=== PATIENT | female | born 1950 | race Caucasian/White ===

== ENCOUNTER 2022-06-29 13:19 | Inpatient (IN) ==
[2022-06-29] MEDS ORDERED: HEPARIN SODIUM IN D5W 25,000 UNITS/500 ML BAG IV PRN (17:08)
[2022-06-29] MEDS ORDERED: HEPARIN SODIUM INJ 5000 UNITS IVP ONE (17:09)
[2022-06-29] MEDS ORDERED: HEPARIN SODIUM INJ 5000 UNITS ONE (17:13)
[2022-06-29] MEDS ORDERED: HEPARIN SODIUM IN D5W 25,000 UNITS/500 ML BAG ONE (17:13)
[2022-06-29 17:39] LABS: INR 1.38 (0.8-1.3)
[2022-06-29 17:49] VITALS: BMI 38.9
[2022-06-29] MEDS ORDERED: PERCOCET TAB 5/325 MG PO PRN (18:19)
[2022-06-29] MEDS ORDERED: LR 1,000 ML IV 1,000 ML IV ONE (18:26)
[2022-06-29 18:40] LABS: BASOPHILS % (AUTO) 0.4 % (0.2-1.0); EOSINOPHILS % (AUTO) 0.3 % (0.9-2.9); HEMATOCRIT 37.8 % (36.0-47.0); HEMOGLOBIN 12.5 g/dL (12.0-16.0); LYMPHOCYTES # (AUTO) 0.6 X10^3/uL (1.3-2.9); LYMPHOCYTES % (AUTO) 7.9 % (21.0-51.0); MEAN CORPUSCULAR HEMOGLOBIN 26.4 pg (27.0-34.0); MEAN CORPUSCULAR VOLUME 79.9 fL (80.0-100.0); MEAN PLATELET VOLUME 7.7 fL (7.4-11.0); MONOCYTES # (AUTO) 0.1 x10^3/uL (0.3-0.8); MONOCYTES % (AUTO) 1.1 % (0.0-13.0); NEUTROPHILS % (AUTO) 90.3 % (42.0-75.0); RED BLOOD COUNT 4.73 X10^6/uL (3.5-5.4); RED CELL DISTRIBUTION WIDTH 15.2 % (11.6-16.5); WHITE BLOOD COUNT 7.7 X10^3/uL (3.6-10.0)
[2022-06-29] MEDS: LR 1,000 ML IV 1,000 ML IV SCH (18:44)
[2022-06-29 18:54] LABS: ALANINE AMINOTRANSFERASE 30 Units/L (12-78); ALBUMIN 3.8 g/dL (3.4-5.0); ALKALINE PHOSPHATASE 55 Units/L (46-116); ASPARTATE AMINO TRANSFERASE 48 Units/L (15-37); BLOOD UREA NITROGEN 11 mg/dL (7-18); CARBON DIOXIDE 28.3 mmol/L (21-32); CHLORIDE 104 mmol/L (98-107); COR NA(FOR HYPERGLY) 143 mmol/L (136-145); SODIUM 141 mmol/L (136-145); TOTAL PROTEIN 7.2 g/dL (6.4-8.2); eGFR NON BLACK RACES > 60 (>60)
[2022-06-29 19:03] LABS: HYPOCHROMASIA SLIGHT; PLATELET MORPHOLOGY COMMENT NORMAL (NORMAL)
[2022-06-29 19:04] LABS: MICROCYTOSIS SLIGHT
[2022-06-29 19:15] LABS: BILIRUBIN,URINE NEGATIVE (NEGATIVE); BLOOD/HEMOGLOBIN,URINE 1+ (NEGATIVE); GLUCOSE, URINE NEGATIVE (NEGATIVE); KETONES,URINE NEGATIVE (NEGATIVE); LEUKOCYTE ESTERASE ,URINE 3+ (NEGATIVE); NITRITES,URINE POSITIVE (NEGATIVE); PROTEIN,URINE NEGATIVE (NEGATIVE); UROBILINOGEN,URINE 1+ (NORMAL)
[2022-06-29 19:21] LABS: APPEARANCE,URINE CLOUDY (CLEAR); BACTERIA,URINE 3+ /HPF (NEGATIVE); COLOR,URINE YELLOW (YELLOW); SQUAMOUS EPITHELIAL CELL,UR RARE /HPF (NEGATIVE)
[2022-06-29] MEDS ORDERED: CRESTOR TAB 10 MG PO SCH (21:26)
[2022-06-29] MEDS ORDERED: CRESTOR TAB 10 MG PO ONE (21:32)
[2022-06-29] MEDS ORDERED: HYDROCHLOROTHIAZIDE 25 MG TAB ONE (21:32)
[2022-06-29] MEDS ORDERED: LOPRESSOR TAB 25 MG ONE (21:32)
[2022-06-29] MEDS: LOPRESSOR TAB 25 MG PO SCH (21:37)
[2022-06-29] MEDS: HYDROCHLOROTHIAZIDE 25 MG TAB PO SCH (21:38)
[2022-06-29] MEDS ORDERED: LOPRESSOR INJ 5 MG AMP IVP ONE (23:19)
[2022-06-29] MEDS ORDERED: LOPRESSOR INJ 5 MG AMP ONE (23:22)
[2022-06-30] MEDS: LR 1,000 ML IV 1,000 ML IV SCH (05:42)
[2022-06-30] MEDS ORDERED: SYNTHROID 75 mcg TAB PO SCH (06:30)
[2022-06-30] MEDS ORDERED: HEPARIN SODIUM IN D5W 75,000 UNITS/1,500 ML BAG ONE (06:57)
[2022-06-30] MEDS ORDERED: MARCAINE 0.5% ONE (07:01)
[2022-06-30] MEDS ORDERED: ACTIVASE CATHFLO ONE (07:02)
[2022-06-30 07:06] LABS: BASOPHILS % (AUTO) 0.3 % (0.2-1.0); HEMATOCRIT 36.2 % (36.0-47.0); HEMOGLOBIN 12.3 g/dL (12.0-16.0); LYMPHOCYTES # (AUTO) 0.6 X10^3/uL (1.3-2.9); LYMPHOCYTES % (AUTO) 9.8 % (21.0-51.0); MEAN CORPUSCULAR HEMOGLOBIN 26.7 pg (27.0-34.0); MEAN CORPUSCULAR VOLUME 78.6 fL (80.0-100.0); MEAN PLATELET VOLUME 7.7 fL (7.4-11.0); MONOCYTES # (AUTO) 0.2 x10^3/uL (0.3-0.8); MONOCYTES % (AUTO) 2.4 % (0.0-13.0); NEUTROPHILS # (AUTO) 5.6 x10^3/uL (2.2-4.8); NEUTROPHILS % (AUTO) 87.5 % (42.0-75.0); RED CELL DISTRIBUTION WIDTH 14.7 % (11.6-16.5); WHITE BLOOD COUNT 6.3 X10^3/uL (3.6-10.0)
[2022-06-30 07:13] LABS: ALANINE AMINOTRANSFERASE 28 Units/L (12-78); ALBUMIN 3.6 g/dL (3.4-5.0); ALKALINE PHOSPHATASE 52 Units/L (46-116); ASPARTATE AMINO TRANSFERASE 36 Units/L (15-37); BLOOD UREA NITROGEN 15 mg/dL (7-18); CALCIUM 8.9 mg/dL (8.5-10.1); CARBON DIOXIDE 26.5 mmol/L (21-32); CHLORIDE 104 mmol/L (98-107); COR NA(FOR HYPERGLY) 141 mmol/L (136-145); CREATININE 0.81 mg/dL (0.55-1.02); SODIUM 140 mmol/L (136-145); TOTAL PROTEIN 6.8 g/dL (6.4-8.2); eGFR NON BLACK RACES > 60 (>60)
[2022-06-30] MEDS ORDERED: DIPRIVAN VIAL 40 ML ONE (07:20)
[2022-06-30] MEDS ORDERED: HEPARIN SODIUM INJ 5000 UNITS ONE (07:20)
[2022-06-30] MEDS ORDERED: XYLOCAINE 2 % (PLAIN) ONE (07:20)
[2022-06-30] MEDS ORDERED: PRECEDEX INJ VIAL IVP ONE (07:20)
[2022-06-30] MEDS ORDERED: MAGNESIUM SULFATE 50% INJ VIAL ONE (07:20)
[2022-06-30] MEDS ORDERED: KETAMINE HCL ONE (07:26)
[2022-06-30] MEDS ORDERED: CLEOCIN 600 MG IV PREMIX 600 MG/50 ML BAG IV ONE (07:30)
[2022-06-30] MEDS ORDERED: LR 1,000 ML IV 1,000 ML IV ONE (07:34)
[2022-06-30] MEDS ORDERED: NS 1,000 ML IV 1,000 ML ONE (07:37)
[2022-06-30] MEDS ORDERED: HEPARIN SODIUM IN D5W 25,000 UNITS/500 ML BAG ONE ×2 (07:37→08:22)
[2022-06-30] MEDS ORDERED: ACTIVASE CATHFLO 12 MG in NS 250 ML IV 228 ML IV ONE (08:00)
--- NOTE | 2022-06-30 08:00 | DR.H&P ---
H&P History & Physical for Day of: H&P Date: 06/29/22 Chief Complaint Chief Complaint: Swollen left leg with documented complete femoral occlusion by deep venous thrombosis. Allergies Allergies Allergy/AdvReac Type Severity Reaction Status Date / Time MS Penicillins [Penicillins] Allergy Verified 05/17/15 20:25 History of Present Illness History of Present Illness: 71 year old female with significant swelling of both lower extremities of the last several weeks, worse on the left side. Admitted to the hospital in [place], [place] with doppler showing deep Venous Thrombosis and complete occlusion of the left femoral vein. Patient treated with Heparin. Transferred [place] to consider peripheral based thrombolysis and /or peripheral thrombectomy. Past Medical History Past Medical History: GERD, Hypertension and Hypothyroidism Past Surgical History Surgical History: Cholecystectomy and Other (cervical neck surgery in the past ) Family History Family Medical History: Diabetes Mellitus and Cancer Social History Does patient currently use any type of tobacco product: No Alcohol Use: None Drug Use: None Medications Home Medications: MS Penicillins [Penicillins] Allergy (Verified 05/17/15 20:25) Citalopram HCTZ Synthroid Metoprolol Prilosec Crestor Labs Result Diagrams: 06/30/22 06:45 06/30/22 06:45 Labs: Laboratory WBC 6.3 X10^3/uL (3.6-10.0) 06/30/22 06:45 RBC 4.60 X10^6/uL (3.5-5.4) 06/30/22 06:45 Hgb 12.3 g/dL (12.0-16.0) 06/30/22 06:45 Hct 36.2 % (36.0-47.0) 06/30/22 06:45 MCV 78.6 fL (80.0-100.0) L 06/30/22 06:45 MCH 26.7 pg (27.0-34.0) L 06/30/22 06:45 MCHC 34.0 g/dL (33.0-35.0) 06/30/22 06:45 RDW 14.7 % (11.6-16.5) 06/30/22 06:45 Plt Count 185 X10^3/uL (150.0-450.0) 06/30/22 06:45 Plt Count Comment Adequate (ADEQUATE) 06/29/22 18:30 MPV 7.7 fL (7.4-11.0) 06/30/22 06:45 Neut % (Auto) 87.5 % (42.0-75.0) H 06/30/22 06:45 Lymph % (Auto) 9.8 % (21.0-51.0) L 06/30/22 06:45 [place] % (Auto) 2.4 % (0.0-13.0) 06/30/22 06:45 Eos % (Auto) 0.0 % (0.9-2.9) L 06/30/22 06:45 Baso % (Auto) 0.3 % (0.2-1.0) 06/30/22 06:45 Neut # (Auto) 5.6 x10^3/uL (2.2-4.8) H 06/30/22 06:45 Lymph # (Auto) 0.6 X10^3/uL (1.3-2.9) L 06/30/22 06:45 [place] # (Auto) 0.2 x10^3/uL (0.3-0.8) L 06/30/22 06:45 Eos # (Auto) 0.0 x10^3/uL (0.0-0.2) 06/30/22 06:45 Baso # (Auto) 0.0 X10^3/uL (0.0-0.1) 06/30/22 06:45 Absolute Nucleated RBC 0.0 /100WBC 06/30/22 06:45 Total Counted 100 06/29/22 18:30 Neutrophils % (Manual) 85 % (39-76) H 06/29/22 18:30 Lymphocytes % (Manual) 11 % (13-43) L 06/29/22 18:30 Monocytes % (Manual) 4 % (4-9) 06/29/22 18:30 Plt Morphology Comment Normal (NORMAL) 06/29/22 18:30 RBC Morphology Abnormal (NORMAL) A 06/29/22 18:30 Hypochromasia Slight A 06/29/22 18:30 Microcytosis Slight A 06/29/22 18:30 PT 16.5 SECONDS (11.8-14.3) 06/29/22 17:20 INR Target Range - 06/29/22 17:20 INR 1.38 (0.8-1.3) H 06/29/22 17:20 APTT 44.6 SECONDS (22.9-36.5) H 06/30/22 06:45 PTT Comment - 06/30/22 06:45 Sodium 140 mmol/L (136-145) 06/30/22 06:45 Corrected Sodium 141 mmol/L (136-145) 06/30/22 06:45 Potassium 3.4 mmol/L (3.5-5.1) L 06/30/22 06:45 Chloride 104 mmol/L (98-107) 06/30/22 06:45 Carbon Dioxide 26.5 mmol/L (21-32) 06/30/22 06:45 BUN 15 mg/dL (7-18) 06/30/22 06:45 Creatinine 0.81 mg/dL (0.55-1.02) 06/30/22 06:45 Est GFR (MDRD) Af Amer > 60 (>60) 06/30/22 06:45 Est GFR (MDRD) Non-Af > 60 (>60) 06/30/22 06:45 Glucose 148 mg/dL (65-99) H 06/30/22 06:45 Calcium 8.9 mg/dL (8.5-10.1) 06/30/22 06:45 Corrected Calcium TNP 06/30/22 06:45 Total Bilirubin 0.60 mg/dL (0.2-1.0) 06/30/22 06:45 AST 36 Units/L (15-37) 06/30/22 06:45 ALT 28 Units/L (12-78) 06/30/22 06:45 Alkaline Phosphatase 52 Units/L (46-116) 06/30/22 06:45 Total Protein 6.8 g/dL (6.4-8.2) 06/30/22 06:45 Albumin 3.6 g/dL (3.4-5.0) 06/30/22 06:45 Globulin 3.2 g/dL (2.5-4.5) 06/30/22 06:45 Albumin/Globulin Ratio 1.1 Ratio (1.1-2.1) 06/30/22 06:45 Specimen Type Clean catch urine 06/29/22 18:20 Urine Color Yellow (YELLOW) 06/29/22 18:20 Urine Appearance Cloudy (CLEAR) 06/29/22 18:20 Urine pH 8.0 (5.0 - 8.0) 06/29/22 18:20 Ur Specific [place] 1.010 (1.000-1.030) 06/29/22 18:20 Urine Protein Negative (NEGATIVE) 06/29/22 18:20 Urine Glucose (UA) Negative (NEGATIVE) 06/29/22 18:20 Urine Ketones Negative (NEGATIVE) 06/29/22 18:20 Urine Blood 1+ (NEGATIVE) 06/29/22 18:20 Urine Nitrite Positive (NEGATIVE) 06/29/22 18:20 Urine Bilirubin Negative (NEGATIVE) 06/29/22 18:20 Urine Urobilinogen 1+ (NORMAL) 06/29/22 18:20 Ur Leukocyte Esterase 3+ (NEGATIVE) 06/29/22 18:20 Urine RBC 3-5 /HPF (0-3) A 06/29/22 18:20 Urine WBC 20-30 /HPF (0-5) A 06/29/22 18:20 Ur Squamous Epith Cells Rare /HPF (NEGATIVE) 06/29/22 18:20 Urine Bacteria 3+ /HPF (NEGATIVE) 06/29/22 18:20 Ur Culture Indicated? Yes/culture set up 06/29/22 18:20 Review of Systems Constitutional: See HPI Eyes: No Symptoms Reported ENT: No Symptoms Reported Respiratory: No Symptoms Reported Cardiovascular: No Symptoms Reported Gastrointestinal: No Symptoms Reported Genitourinary: No Symptoms Reported Musculoskeletal: No Symptoms Reported Skin: See HPI Neurological: No Symptoms Reported Physical Exam Vital Signs: Temperature 98.5 F Pulse Rate 74 Respiratory Rate 18 Blood Pressure 157/83 O2 Sat by Pulse Oximetry 91 Oriented: Normal, Time, Person and Place Eyes: Normal Ear: Normal Nose: Normal Throat: Normal Respiratory: Clear Throughout Cardiovascular: Normal : Normal Auscultation: Bowel Sounds: Normal Tenderness: Normal Skin: Normal (4 + pitting edema both lower extremities. ) Musculoskeletal: Normal Psychiatric: Normal Mood Description: Calm Affect: Normal Assessment/Plan (1) Left leg DVT: Status: Acute Plan: Treated with Heparin overnight. Will place thrombolytic catheter for thrombolysis and possible peripheral thrombectomy (2) Essential (primary) hypertension: Status: Acute Plan: home medications (3) Gastro-esophageal reflux disease without esophagitis: Status: Acute Plan: home medications (4) Compression of vein: Status: Acute Plan: A component of this may be severe iliac vein compression. Will do IVUS left side ans see. May need both sides addresses. Review H&P Reviewed: Yes Patient was examined?: Yes
--- NOTE | 2022-06-30 08:00 | EKG ---
Test Reason : pt in PACU Blood Pressure : */* mmHG Vent. Rate : 51 BPM Atrial Rate : 51 BPM P-R Int : 166 ms QRS Dur : 182 ms QT Int : 516 ms P-R-T Axes : 61 -62 -14 degrees QTc Int : 475 ms Sinus bradycardia Right bundle branch block Left anterior fascicular block Bifascicular block Abnormal ECG No previous ECGs available Referred By: Confirmed By:
[2022-06-30] MEDS ORDERED: ULTANE GAS IN ONE (08:03)
[2022-06-30] MEDS ORDERED: EPHEDRINE SULFATE INJ ONE (08:52)
[2022-06-30] MEDS ORDERED: NEO-SYNEPHRINE INJ ONE (08:57)
[2022-06-30] MEDS ORDERED: HYDROCHLOROTHIAZIDE 12.5 MG CAP PO SCH (09:00)
[2022-06-30] MEDS ORDERED: CELEXA PO SCH (09:00)
[2022-06-30] MEDS ORDERED: PriLOSEC PO SCH (09:00)
[2022-06-30] MEDS ORDERED: BARHEMSYS INJ IVP PRN (09:29)
[2022-06-30] MEDS ORDERED: PHENERGAN INJ 25 MG IM PRN (09:29)
[2022-06-30] MEDS ORDERED: DILAUDID INJ IVP PRN (09:29)
[2022-06-30] MEDS ORDERED: ZOFRAN INJ 4 MG VIAL IVP PRN (09:29)
[2022-06-30] MEDS ORDERED: BENADRYL INJ 50 MG VIAL IVP PRN (09:29)
--- NOTE | 2022-06-30 09:29 | OR.IMMED ---
IMMEDIATE POST-OP NOTE Immediate Post-Op Note Pre-Op Diagnosis: Deep Venous Thrombosis left femoral vein Post-Op Diagnosis: same Procedure: left lower extremity venogram, peripheral thrombectomy left femoral vein Description of Procedure: see operative summary Surgeon/Hogshead Filler: Griffin Findings: as above Estimated Blood Loss: < 25 cc Complications: none Progress Notes: return to ICU . Continue IV Heparin until receive first dose of po xarelto Condition: Stable Final Diagnosis: DVT left femoral vein
[2022-06-30] MEDS ORDERED: NORMODYNE INJ 20 MG VIAL IVP ONE (09:43)
[2022-06-30] MEDS ORDERED: APRESOLINE INJ 20 MG VIAL ONE (09:51)
[2022-06-30] MEDS ORDERED: LOPRESSOR INJ 5 MG AMP IVP ONE (10:00)
[2022-06-30] MEDS ORDERED: LABETALOL HCL IVP ONE (10:37)
[2022-06-30] MEDS ORDERED: NORMODYNE INJ 20 MG VIAL ONE (10:39)
[2022-06-30] MEDS: LOPRESSOR TAB 25 MG PO SCH (12:25)
[2022-06-30] MEDS: HYDROCHLOROTHIAZIDE 25 MG TAB PO SCH (12:25)
[2022-06-30] MEDS ORDERED: XARELTO PO ONE (12:28)
--- NOTE | 2022-06-30 16:19 | W.DIS.FURT ---
Summary of Discharge Discharge Summary of Date Date of Exam: 06/30/22 Admission Date Date of Admission: 06/29/22 Admission Diagnosis Hospital Course: 70 year old female admitted to the hospital in [place], [place] with deep Venous Thrombosis of the left femoral vein. She was transferred here for care where she underwent treatment with Heparin intravenously the day of admission and today underwent peripheral thrombectomy of the left leg deep Venous Thrombosis. She also is known to have a urinary tract infection. Still be discharged home on her usual medications plus Xarelto m15 mg po BID and Cipro 500 mg BID .The Cipro will be for 10 days Vital Signs: Vital Signs (72 hours) 06/29/22 16:49 06/29/22 20:00 06/29/22 20:30 Temperature 98.4 F Pulse Rate 92 H 79 Respiratory Rate 18 Blood Pressure 226/96 181/85 O2 Sat by Pulse Oximetry 93 L 92 L Oxygen Delivery Method Room Air Room Air Room Air Oxygen Flow Rate 06/29/22 21:00 06/29/22 19:00 06/29/22 22:00 Temperature Pulse Rate 80 74 Respiratory Rate 17 16 Blood Pressure 202/86 183/82 O2 Sat by Pulse Oximetry 95 91 L Oxygen Delivery Method Room Air Room Air Room Air Oxygen Flow Rate 06/29/22 23:30 06/29/22 23:00 06/29/22 23:00 Temperature 98.4 F Pulse Rate 78 75 Respiratory Rate 15 15 Blood Pressure 182/80 182/80 174/78 O2 Sat by Pulse Oximetry 88 L 90 L Oxygen Delivery Method Room Air Room Air Oxygen Flow Rate 06/29/22 23:40 06/29/22 23:50 06/30/22 00:00 Temperature 98.1 F Pulse Rate 79 Respiratory Rate 20 Blood Pressure 178/79 190/80 180/75 O2 Sat by Pulse Oximetry 96 Oxygen Delivery Method Room Air Oxygen Flow Rate 06/30/22 00:10 06/30/22 01:00 06/30/22 02:00 Temperature Pulse Rate 78 81 Respiratory Rate 16 17 Blood Pressure 165/77 172/77 186/80 O2 Sat by Pulse Oximetry 94 L 93 L Oxygen Delivery Method Room Air Room Air Oxygen Flow Rate 06/30/22 02:27 06/30/22 03:00 06/30/22 04:00 Temperature 98.5 F Pulse Rate 79 79 81 Respiratory Rate 18 19 23 Blood Pressure 166/74 165/77 113/74 O2 Sat by Pulse Oximetry 92 L 93 L 92 L Oxygen Delivery Method Room Air Room Air Nasal Cannula Oxygen Flow Rate 2 06/30/22 05:00 06/30/22 06:00 06/30/22 07:00 Temperature Pulse Rate 79 76 Respiratory Rate 18 16 Blood Pressure 156/73 165/79 O2 Sat by Pulse Oximetry 94 L 97 Oxygen Delivery Method Nasal Cannula Nasal Cannula Room Air Oxygen Flow Rate 2 2 06/29/22 23:31 06/29/22 23:42 06/29/22 23:42 Temperature Pulse Rate 75 77 Respiratory Rate 15 17 Blood Pressure 178/79 O2 Sat by Pulse Oximetry 90 L 94 L Oxygen Delivery Method Oxygen Flow Rate 06/29/22 23:56 06/29/22 23:58 06/29/22 23:58 Temperature Pulse Rate 80 78 Respiratory Rate 27 H 25 H Blood Pressure 190/80 O2 Sat by Pulse Oximetry 95 91 L Oxygen Delivery Method Oxygen Flow Rate 06/30/22 00:00 06/30/22 00:00 06/30/22 00:10 Temperature Pulse Rate 79 Respiratory Rate 20 Blood Pressure 180/75 165/77 O2 Sat by Pulse Oximetry 96 Oxygen Delivery Method Oxygen Flow Rate 06/30/22 00:10 06/30/22 00:15 06/30/22 00:30 Temperature Pulse Rate 75 76 76 Respiratory Rate 16 19 22 Blood Pressure O2 Sat by Pulse Oximetry 94 L 92 L 95 Oxygen Delivery Method Oxygen Flow Rate 06/30/22 00:45 06/30/22 01:00 06/30/22 01:00 Temperature Pulse Rate 77 79 Respiratory Rate 21 14 Blood Pressure 172/77 O2 Sat by Pulse Oximetry 94 L 92 L Oxygen Delivery Method Oxygen Flow Rate 06/30/22 01:15 06/30/22 01:30 06/30/22 01:45 Temperature Pulse Rate 78 77 80 Respiratory Rate 18 17 19 Blood Pressure O2 Sat by Pulse Oximetry 93 L 93 L 94 L Oxygen Delivery Method Oxygen Flow Rate 06/30/22 02:03 06/30/22 02:04 06/30/22 02:04 Temperature Pulse Rate 84 81 Respiratory Rate 29 H 17 Blood Pressure 186/80 O2 Sat by Pulse Oximetry 95 93 L Oxygen Delivery Method Oxygen Flow Rate 06/30/22 02:15 06/30/22 02:27 06/30/22 02:27 Temperature Pulse Rate 77 79 Respiratory Rate 18 18 Blood Pressure 166/74 O2 Sat by Pulse Oximetry 91 L 92 L Oxygen Delivery Method Oxygen Flow Rate 06/30/22 02:30 06/30/22 02:45 06/30/22 03:00 Temperature Pulse Rate 78 64 82 Respiratory Rate 18 17 18 Blood Pressure O2 Sat by Pulse Oximetry 94 L 93 L 95 Oxygen Delivery Method Oxygen Flow Rate 06/30/22 03:01 06/30/22 03:01 06/30/22 03:15 Temperature Pulse Rate 82 80 Respiratory Rate 16 21 Blood Pressure 165/77 O2 Sat by Pulse Oximetry 96 91 L Oxygen Delivery Method Oxygen Flow Rate 06/30/22 03:30 06/30/22 03:45 06/30/22 04:00 Temperature Pulse Rate 80 79 81 Respiratory Rate 16 16 19 Blood Pressure O2 Sat by Pulse Oximetry 89 L 89 L 89 L Oxygen Delivery Method Oxygen Flow Rate 06/30/22 04:01 06/30/22 04:01 06/30/22 04:15 Temperature Pulse Rate 81 79 Respiratory Rate 23 18 Blood Pressure 113/74 O2 Sat by Pulse Oximetry 92 L 89 L Oxygen Delivery Method Oxygen Flow Rate 06/30/22 04:30 06/30/22 04:45 06/30/22 05:00 Temperature Pulse Rate 80 79 Respiratory Rate 21 18 Blood Pressure 156/73 O2 Sat by Pulse Oximetry 89 L 89 L Oxygen Delivery Method Oxygen Flow Rate 06/30/22 05:00 06/30/22 05:32 06/30/22 05:45 Temperature Pulse Rate 79 80 76 Respiratory Rate 18 23 18 Blood Pressure O2 Sat by Pulse Oximetry 94 L 96 Oxygen Delivery Method Oxygen Flow Rate 06/30/22 06:00 06/30/22 06:00 06/30/22 06:15 Temperature Pulse Rate 78 76 Respiratory Rate 19 18 Blood Pressure 165/79 O2 Sat by Pulse Oximetry 94 L 95 Oxygen Delivery Method Oxygen Flow Rate 06/30/22 06:30 06/30/22 06:45 06/30/22 07:01 Temperature Pulse Rate 73 69 77 Respiratory Rate 15 20 Blood Pressure O2 Sat by Pulse Oximetry 93 L 98 97 Oxygen Delivery Method Oxygen Flow Rate 06/30/22 07:02 06/30/22 07:02 06/30/22 07:31 Temperature Pulse Rate 73 74 Respiratory Rate 21 18 Blood Pressure 173/80 157/83 O2 Sat by Pulse Oximetry 94 L 91 L Oxygen Delivery Method Room Air Oxygen Flow Rate 06/30/22 09:23 06/30/22 09:28 06/30/22 09:33 Temperature 98.2 F Pulse Rate 66 67 67 Respiratory Rate 16 16 16 Blood Pressure 200/105 194/101 199/104 O2 Sat by Pulse Oximetry 95 96 96 Oxygen Delivery Method Nasal Cannula Nasal Cannula Nasal Cannula Oxygen Flow Rate 06/30/22 09:38 06/30/22 09:43 06/30/22 09:48 Temperature Pulse Rate 67 67 68 Respiratory Rate 16 16 16 Blood Pressure 199/104 202/106 194/100 O2 Sat by Pulse Oximetry 97 97 96 Oxygen Delivery Method Nasal Cannula Nasal Cannula Nasal Cannula Oxygen Flow Rate 06/30/22 09:53 06/30/22 09:58 06/30/22 10:03 Temperature Pulse Rate 71 71 70 Respiratory Rate 16 18 18 Blood Pressure 194/100 195/101 197/99 O2 Sat by Pulse Oximetry 94 L 94 L 93 L Oxygen Delivery Method Nasal Cannula Nasal Cannula Nasal Cannula Oxygen Flow Rate 06/30/22 10:08 06/30/22 10:25 06/30/22 10:22 Temperature Pulse Rate 69 Respiratory Rate 18 Blood Pressure 198/100 219/105 O2 Sat by Pulse Oximetry 93 L 94 L Oxygen Delivery Method Nasal Cannula Oxygen Flow Rate 06/30/22 10:23 06/30/22 10:23 06/30/22 10:30 Temperature Pulse Rate 67 Respiratory Rate Blood Pressure 215/97 202/92 O2 Sat by Pulse Oximetry 95 Oxygen Delivery Method Oxygen Flow Rate 06/30/22 10:30 06/30/22 10:45 06/30/22 10:45 Temperature Pulse Rate 68 66 Respiratory Rate Blood Pressure 203/88 O2 Sat by Pulse Oximetry 95 94 L Oxygen Delivery Method Oxygen Flow Rate 06/30/22 11:00 06/30/22 11:01 06/30/22 11:01 Temperature Pulse Rate 59 L 59 L Respiratory Rate Blood Pressure 212/100 O2 Sat by Pulse Oximetry 97 96 Oxygen Delivery Method Oxygen Flow Rate 06/30/22 11:15 06/30/22 11:15 06/30/22 11:30 Temperature Pulse Rate 68 71 Respiratory Rate Blood Pressure 203/93 O2 Sat by Pulse Oximetry 95 98 Oxygen Delivery Method Oxygen Flow Rate 06/30/22 11:31 06/30/22 11:31 06/30/22 11:45 Temperature Pulse Rate 71 Respiratory Rate Blood Pressure 223/94 206/91 O2 Sat by Pulse Oximetry 95 Oxygen Delivery Method Oxygen Flow Rate 06/30/22 11:45 06/30/22 12:00 06/30/22 12:00 Temperature Pulse Rate 66 66 Respiratory Rate Blood Pressure 202/88 O2 Sat by Pulse Oximetry 98 95 Oxygen Delivery Method Oxygen Flow Rate 06/30/22 12:15 06/30/22 12:16 06/30/22 12:16 Temperature Pulse Rate 59 L 59 L Respiratory Rate Blood Pressure 203/91 O2 Sat by Pulse Oximetry 98 95 Oxygen Delivery Method Oxygen Flow Rate 06/30/22 12:30 06/30/22 12:30 06/30/22 12:45 Temperature Pulse Rate 76 Respiratory Rate Blood Pressure 204/93 197/94 O2 Sat by Pulse Oximetry 99 Oxygen Delivery Method Oxygen Flow Rate 06/30/22 12:45 06/30/22 13:00 06/30/22 13:00 Temperature Pulse Rate 62 67 Respiratory Rate Blood Pressure 207/94 O2 Sat by Pulse Oximetry 97 98 Oxygen Delivery Method Oxygen Flow Rate 06/30/22 13:15 06/30/22 13:16 06/30/22 13:16 Temperature Pulse Rate 73 73 Respiratory Rate Blood Pressure 186/88 O2 Sat by Pulse Oximetry 97 98 Oxygen Delivery Method Oxygen Flow Rate 06/30/22 13:30 06/30/22 13:31 06/30/22 13:31 Temperature Pulse Rate 73 73 Respiratory Rate Blood Pressure 149/68 O2 Sat by Pulse Oximetry 93 L 93 L Oxygen Delivery Method Oxygen Flow Rate 06/30/22 13:45 06/30/22 13:46 06/30/22 13:46 Temperature 97.2 F L Pulse Rate 72 73 Respiratory Rate Blood Pressure 181/81 O2 Sat by Pulse Oximetry 97 98 Oxygen Delivery Method Oxygen Flow Rate 06/30/22 14:00 06/30/22 14:01 06/30/22 14:01 Temperature 97.9 F Pulse Rate 74 76 Respiratory Rate Blood Pressure 162/77 O2 Sat by Pulse Oximetry 99 99 Oxygen Delivery Method Oxygen Flow Rate 06/30/22 14:15 06/30/22 14:15 06/30/22 14:30 Temperature Pulse Rate 72 Respiratory Rate Blood Pressure 153/71 149/64 O2 Sat by Pulse Oximetry 99 Oxygen Delivery Method Oxygen Flow Rate 06/30/22 14:30 06/30/22 14:45 06/30/22 14:45 Temperature Pulse Rate 72 73 Respiratory Rate Blood Pressure 145/67 O2 Sat by Pulse Oximetry 100 97 Oxygen Delivery Method Oxygen Flow Rate 06/30/22 15:00 06/30/22 15:01 06/30/22 15:01 Temperature Pulse Rate 72 72 Respiratory Rate Blood Pressure 150/69 O2 Sat by Pulse Oximetry 100 98 Oxygen Delivery Method Oxygen Flow Rate 06/30/22 15:15 06/30/22 15:15 Temperature Pulse Rate 71 Respiratory Rate Blood Pressure 159/74 O2 Sat by Pulse Oximetry 96 Oxygen Delivery Method Oxygen Flow Rate Labs: Laboratory Last Values WBC 6.3 X10^3/uL (3.6-10.0) 06/30/22 06:45 RBC 4.60 X10^6/uL (3.5-5.4) 06/30/22 06:45 Hgb 12.3 g/dL (12.0-16.0) 06/30/22 06:45 Hct 36.2 % (36.0-47.0) 06/30/22 06:45 MCV 78.6 fL (80.0-100.0) L 06/30/22 06:45 MCH 26.7 pg (27.0-34.0) L 06/30/22 06:45 MCHC 34.0 g/dL (33.0-35.0) 06/30/22 06:45 RDW 14.7 % (11.6-16.5) 06/30/22 06:45 Plt Count 185 X10^3/uL (150.0-450.0) 06/30/22 06:45 Plt Count Comment Adequate (ADEQUATE) 06/29/22 18:30 MPV 7.7 fL (7.4-11.0) 06/30/22 06:45 Neut % (Auto) 87.5 % (42.0-75.0) H 06/30/22 06:45 Lymph % (Auto) 9.8 % (21.0-51.0) L 06/30/22 06:45 [place] % (Auto) 2.4 % (0.0-13.0) 06/30/22 06:45 Eos % (Auto) 0.0 % (0.9-2.9) L 06/30/22 06:45 Baso % (Auto) 0.3 % (0.2-1.0) 06/30/22 06:45 Neut # (Auto) 5.6 x10^3/uL (2.2-4.8) H 06/30/22 06:45 Lymph # (Auto) 0.6 X10^3/uL (1.3-2.9) L 06/30/22 06:45 [place] # (Auto) 0.2 x10^3/uL (0.3-0.8) L 06/30/22 06:45 Eos # (Auto) 0.0 x10^3/uL (0.0-0.2) 06/30/22 06:45 Baso # (Auto) 0.0 X10^3/uL (0.0-0.1) 06/30/22 06:45 Absolute Nucleated RBC 0.0 /100WBC 06/30/22 06:45 Total Counted 100 06/29/22 18:30 Neutrophils % (Manual) 85 % (39-76) H 06/29/22 18:30 Lymphocytes % (Manual) 11 % (13-43) L 06/29/22 18:30 Monocytes % (Manual) 4 % (4-9) 06/29/22 18:30 Plt Morphology Comment Normal (NORMAL) 06/29/22 18:30 RBC Morphology Abnormal (NORMAL) A 06/29/22 18:30 Hypochromasia Slight A 06/29/22 18:30 Microcytosis Slight A 06/29/22 18:30 PT 16.5 SECONDS (11.8-14.3) 06/29/22 17:20 INR Target Range - 06/29/22 17:20 INR 1.38 (0.8-1.3) H 06/29/22 17:20 APTT 44.6 SECONDS (22.9-36.5) H 06/30/22 06:45 PTT Comment - 06/30/22 06:45 Sodium 140 mmol/L (136-145) 06/30/22 06:45 Corrected Sodium 141 mmol/L (136-145) 06/30/22 06:45 Potassium 3.4 mmol/L (3.5-5.1) L 06/30/22 06:45 Chloride 104 mmol/L (98-107) 06/30/22 06:45 Carbon Dioxide 26.5 mmol/L (21-32) 06/30/22 06:45 BUN 15 mg/dL (7-18) 06/30/22 06:45 Creatinine 0.81 mg/dL (0.55-1.02) 06/30/22 06:45 Est GFR (MDRD) Af Amer > 60 (>60) 06/30/22 06:45 Est GFR (MDRD) Non-Af > 60 (>60) 06/30/22 06:45 Glucose 148 mg/dL (65-99) H 06/30/22 06:45 Calcium 8.9 mg/dL (8.5-10.1) 06/30/22 06:45 Corrected Calcium TNP 06/30/22 06:45 Total Bilirubin 0.60 mg/dL (0.2-1.0) 06/30/22 06:45 AST 36 Units/L (15-37) 06/30/22 06:45 ALT 28 Units/L (12-78) 06/30/22 06:45 Alkaline Phosphatase 52 Units/L (46-116) 06/30/22 06:45 Total Protein 6.8 g/dL (6.4-8.2) 06/30/22 06:45 Albumin 3.6 g/dL (3.4-5.0) 06/30/22 06:45 Globulin 3.2 g/dL (2.5-4.5) 06/30/22 06:45 Albumin/Globulin Ratio 1.1 Ratio (1.1-2.1) 06/30/22 06:45 Specimen Type Clean catch urine 06/29/22 18:20 Urine Color Yellow (YELLOW) 06/29/22 18:20 Urine Appearance Cloudy (CLEAR) 06/29/22 18:20 Urine pH 8.0 (5.0 - 8.0) 06/29/22 18:20 Ur Specific [place] 1.010 (1.000-1.030) 06/29/22 18:20 Urine Protein Negative (NEGATIVE) 06/29/22 18:20 Urine Glucose (UA) Negative (NEGATIVE) 06/29/22 18:20 Urine Ketones Negative (NEGATIVE) 06/29/22 18:20 Urine Blood 1+ (NEGATIVE) 06/29/22 18:20 Urine Nitrite Positive (NEGATIVE) 06/29/22 18:20 Urine Bilirubin Negative (NEGATIVE) 06/29/22 18:20 Urine Urobilinogen 1+ (NORMAL) 06/29/22 18:20 Ur Leukocyte Esterase 3+ (NEGATIVE) 06/29/22 18:20 Urine RBC 3-5 /HPF (0-3) A 06/29/22 18:20 Urine WBC 20-30 /HPF (0-5) A 06/29/22 18:20 Ur Squamous Epith Cells Rare /HPF (NEGATIVE) 06/29/22 18:20 Urine Bacteria 3+ /HPF (NEGATIVE) 06/29/22 18:20 Ur Culture Indicated? Yes/culture set up 06/29/22 18:20 Reason For Visit: DVT Discharge Diagnosis All Active Problems (Updated 06/30/22 @ 07:57 by Bob Moya) Left leg DVT (Acute) Compression of vein (Acute) Gastro-esophageal reflux disease without esophagitis (Acute) Essential (primary) hypertension (Acute) Hydronephrosis (Acute) Abdominal pain (Acute) UTI (urinary tract infection) (Acute) Plan of Treatment: Continue with present treatment and follow up plan. Pt is to keep follow up appointment as instructed and take medications as ordered. Discharge Medications Discharge Medications: Penicillins Allergy (Verified 06/30/22 09:10) New Prescriptions ciprofloxacin HCl 500 mg tablet (Cipro) 500 mg PO BID #20 tabs 06/30/22 [Rx] rivaroxaban 15 mg tablet (Xarelto) 15 mg PO QDAY #45 tabs 06/30/22 [Rx] Discharge Disposition Assessment: Left leg DVT, UTI Discharge Plan Discharge Plan Hospital Course: 70 year old female admitted to the hospital in [place], [place] with deep Venous Thrombosis of the left femoral vein. She was transferred here for care where she underwent treatment with Heparin intravenously the day of admission and today underwent peripheral thrombectomy of the left leg deep Venous Thrombosis. She also is known to have a urinary tract infection. Still be discharged home on her usual medications plus Xarelto m15 mg po BID and Cipro 500 mg BID .The Cipro will be for 10 days Patient Disposition: 06 HOME HEALTH SERVICE Condition: Stable Health Concerns: Post Hospitalization: new medications and changes needed to prevent readmission or further decline. Pt educated and given instructions on all concerns. Care Plan Goals: Problem: Pain/Alteration in Comfort Goal: Improve/ Resolve Pain; Achieve Pain Tolerance Instructions: Take pain medications as prescribed. Contact your primary care p maisha if your pain is unrelieved or worsens. Follow up with primary care provider as directed. Plan of Treatment: Continue with present treatment and follow up plan. Pt is to keep follow up appointment as instructed and take medications as ordered. Assessment: Left leg DVT, UTI Prescription drug monitoring program results: PDMP was not reviewed Prescriptions: New Xarelto 15 mg tablet 15 mg PO QDAY Qty: 45 0RF Rx Instructions: must administer with evening meal ciprofloxacin HCl [Cipro] 500 mg tablet 500 mg PO BID Qty: 20 0RF Continued citalopram 40 MG tablet 1 tab PO DAILY Label Comments: Hydrochlorothiazide 25 MG Tab 1 tab PO DAILY Label Comments: Levothyroxine Sodium 75 MCG Tab 1 tab PO DAILY Label Comments: Metoprolol Tartrate [Lopressor] 25 MG Tab 1 tab PO BID Label Comments: Omeprazole 40 MG Cap 1 cap PO DAILY Label Comments: Rosuvastatin Calcium [Crestor] 20 MG Tab 1 tab PO HS Label Comments: Follow ups/Referrals Follow ups/Referrals: Bob Moya [STAFF PHYSICIAN] - 07/06/22 10:00 am Instructions Instructions: Catheter-Directed Thrombolysis, Care After, Deep Vein Thrombosis, Venous Thromboembolism Prevention
[2022-06-30 17:01] VITALS: BP 157/70
[2022-06-30] MEDS ORDERED: XARELTO PO SCH (21:00)
--- NOTE | 2022-07-02 20:41 | DR.OPNOTE ---
OP NOTE Pre-Op Diagnosis: DVT left femoral vein with complete occlusion. Post-Op Diagnosis: DVT left femoral vein but not completely occluded. Procedure Date Date Of Procedure: 06/30/22 Procedure: PROCEDURE : Left leg venogram, venogram of inferior vena cava, Angiojet left femoral vein thrombectomy NARRATIVE: The patient was taken to the operative suite and placed in the supine position and the entire left leg prepped including the left groin. Patient had been on heparin drip which was stopped in the holding area. Ultrasound used to identify the left posterior tibial vein at the medial ankle and the skin overlying it infiltrated with 0.5% Marcaine. Ultrasound used to guide puncture of the left posterior tibial vein and 0.012 inch guide wire placed. Incision made over the guide wire at the skin edge and micro sheath placed over the guide wire into the left posterior tibial vein. Venogram of the left leg carried out showing DVT and incomplete occlusion of the left femoral vein. 0.018 inch guide wire placed and intravascular ultrasound carried out confirming incomplete occlusion and DVT of the left femoral vein. Guidewire exchanged for a 0.035 inch guide wire and over the wire we placed the Angiojet device and performed peripheral thrombectomy of the left femoral vein. IVUS confirmed improvement of the left femoral vein. Patient had been given a bolus of 3000 units of heparin at the beginning of the case. Sheath removed from the left posterior tibial vein and a tibial band placed over the puncture site and will be sequentially deflated by the nurses in the ICU. Type of Anesthesia: Local (0.5% Marcaine ) Anesthesia Comment: plus MAC Findings: Deep venous thrombosis of the left femoral vein. Type of Fluids Used:: Lactated Ringers Total Amount of Fluid Infused:: 500 cc Urine output: 500 cc EBL: < 25 cc Complications:: none Needle/Sponge Count:: correct Disposition/Condition: Pt. tolerated procedure without difficulty. Taken to [facility] in stable condition.
== END 2022-06-30 18:10 | disposition home health service (06) | DRG 271 ==
LOC: ICU 16:34
PROVIDERS: ADMIT Surgery; ATTEND Surgery
DX: R79.1 Abnormal coagulation profile; I82.412 Acute embolism and thrombosis of left femoral vein; R94.31 Abnormal electrocardiogram [ECG] [EKG]; E03.8 Other specified hypothyroidism; N39.0 Urinary tract infection, site not specified; I87.1 Compression of vein; B96.29 Other Escherichia coli [E. coli] as the cause of diseases classified elsewhere; I10 Essential (primary) hypertension

== ENCOUNTER 2022-12-09 21:23 | Observation (INO) ==
[2022-12-09] MEDS ORDERED: NS 1,000 ML IV 1,000 ML ONE (21:53)
[2022-12-09] MEDS ORDERED: NS 1,000 ML IV 1,000 ML IV ONE (22:07)
[2022-12-09] MEDS ORDERED: BYFAVO INJ IVP ONE (22:11)
[2022-12-09] MEDS ORDERED: NORCO 5/325 MG TAB PO PRN ×2 (22:45→23:55)
--- NOTE | 2022-12-09 22:45 | DR.CONSULT ---
CONSULT Consultation for Day of: Date: 12/09/22 Chief Complaint Chief Complaint: right ankle fracture dislocation Allergies Allergies Allergy/AdvReac Type Severity Reaction Status Date / Time Penicillins Allergy Verified 12/09/22 21:54 History of Present Illness History of Present Illness: patient fell at home. did not hit head. no other trauma. was taken to my office x ray taken shown to have fracture dislocation. brought to ER by daughters and will need admission after reduction due to inability to remain NWB. Past Medical History Past Medical History: GERD, Hypertension and Hypothyroidism Past Surgical History Surgical History: Cholecystectomy and Other Family History Family Medical History: Diabetes Mellitus and Cancer Social History Alcohol Use: None Medications Home Medications: Penicillins Allergy (Verified 12/09/22 21:54) Review of Systems Musculoskeletal: Leg Pain Physical Exam Vital Signs: Temperature 98.4 F Pulse Rate 71 Respiratory Rate 20 Blood Pressure 178/79 O2 Sat by Pulse Oximetry 96 Oriented: Normal, Time and Person Musculoskeletal: Ankle (righ tankle with edema. starting to have fracture blister along medial malleoli region. region is 3cm x 1cm and without hamorrhage at this time. no open segments. palapble pulses and CFT instant to toes. ) and Swelling (pitting edema of both legs and ankles , lipedema. ) Plan (1) Dislocation of ankle, right, closed: Status: Acute (2) Bimalleolar fracture of right ankle: Status: Acute Narrative Support Text: Patient was brought o ER in splint. concious sedation given by anesthesia. timeout performed bedside. consent signed and patient prior to sedation. splint removed that was place outside by daughter. ankle then reduced by myself, held and then AO splint applied posterior and slabs. reduction then confirmed with 3 v ankle plain films. patient will need to be admitted for pain control and will need rehab placement. family unable to care for her as she has stairs in house and will be NWB. she will need rehab facility and will need surgical intervention this week. She will need cardiac eval while in hospital due to changed noted on EKG during monitoring. will order 12 lead and monitor.
[2022-12-09 23:03] LABS: BASOPHILS % (AUTO) 0.3 % (0.2-1.0); EOSINOPHILS % (AUTO) 0.4 % (0.9-2.9); HEMATOCRIT 37.3 % (36.0-47.0); HEMOGLOBIN 12.6 g/dL (12.0-16.0); LYMPHOCYTES # (AUTO) 0.8 X10^3/uL (1.3-2.9); LYMPHOCYTES % (AUTO) 6.8 % (21.0-51.0); MEAN CORPUSCULAR HEMOGLOBIN 25.4 pg (27.0-34.0); MEAN CORPUSCULAR HGB CONC 33.6 g/dL (33.0-35.0); MEAN CORPUSCULAR VOLUME 75.4 fL (80.0-100.0); MEAN PLATELET VOLUME 8.2 fL (7.4-11.0); MONOCYTES # (AUTO) 0.5 x10^3/uL (0.3-0.8); MONOCYTES % (AUTO) 4.8 % (0.0-13.0); NEUTROPHILS # (AUTO) 9.9 x10^3/uL (2.2-4.8); NEUTROPHILS % (AUTO) 87.7 % (42.0-75.0); PLATELET COUNT 180 X10^3/uL (150.0-450.0); RED BLOOD COUNT 4.95 X10^6/uL (3.5-5.4); RED CELL DISTRIBUTION WIDTH 15.8 % (11.6-16.5); WHITE BLOOD COUNT 11.3 X10^3/uL (3.6-10.0)
[2022-12-09 23:11] LABS: ALANINE AMINOTRANSFERASE 29 Units/L (12-78); ALBUMIN 3.9 g/dL (3.4-5.0); ALKALINE PHOSPHATASE 44 Units/L (46-116); ASPARTATE AMINO TRANSFERASE 30 Units/L (15-37); BLOOD UREA NITROGEN 20 mg/dL (7-18); CARBON DIOXIDE 30.5 mmol/L (21-32); CHLORIDE 102 mmol/L (98-107); CREATININE 0.89 mg/dL (0.55-1.02); GLUCOSE 109 mg/dL (65-99); POTASSIUM 3.1 mmol/L (3.5-5.1); SODIUM 142 mmol/L (136-145); eGFR NON BLACK RACES > 60 (>60)
--- NOTE | 2022-12-09 23:25 | DR.EXTPAIN ---
HPI Time seen Time Seen by Provider: 12/09/22 21:55 Complaint/Symptoms Chief Complaint Doctor Comments: DR LOUISE CALERNIE ABOUT A PATIENT COMING TO ER TO BE EVALUTED AND HE WAS COMING TO REDUCE A R ANKLE FRACTURE AND NEED THE PATIENT TO HAVE CONSCIOUS SEDATION. WHEN HE ARRIVE AT ER THENURSE ANESTETIST WAS CALLED TO DO CONSCIOUS SEDATION. Chief Complaint:: pt c/o right ankle pain after falling today, reports she had an xray at Dr. Louise's office and was told it was dislocated and was instructed by him to come to ER, pt with orthoglass to RLL, pt with NAD COVID-19 Coronavirus risk:travel/contact w/high risk person: No Has patient experienced Coronavirus symptoms: No Source History Provided: Patient and Family Member Mode of arrival Mode of Arrival: Wheelchair Timing Onset of Chief Complaint: 12/09/22 PMH PMH Past Medical History: Yes Past Medical History: GERD, Hypertension and Hypothyroidism Past Surgical History: Yes Surgical History: Cholecystectomy and Other Family History History of Family Medical Conditions: Yes Family Medical History: Diabetes Mellitus and Cancer Social History Alcohol Use: None Do you use any recreational Drugs:: No Lives With: Family Lives Where: Home Travel Risk Coronavirus risk:travel/contact w/high risk person: No Has patient experienced Coronavirus symptoms: No Infectious screening Have you traveled outside the country in the last 6 months?: No Isolation: Standard ROS Review of Systems Constitutional: Other (R ANKLE PAIN WITH FRACTURES) Eyes: No Symptoms Reported ENTM: No Symptoms Reported Respiratoy: No Symptoms Reported Cardiovascular: No Symptoms Reported Gastrointestinal/Abdominal: No Symptoms Reported Genitourinary: No Symptoms Reported Neurological: No Symptoms Reported Musculoskeletal: Right, Ankle and Foot (PAIN) Integumentary: No Symptoms Reported Hematologic/Lymphatic: No Symptoms Reported Endocrine: No Symptoms Reported Psychiatric: No Symptoms Reported PE Vital Signs Vitals: Temperature 98.4 F Pulse Rate 71 Respiratory Rate 18 Blood Pressure 178/79 O2 Sat by Pulse Oximetry 96 General Limitations: Physical Limitation (NOT AMBULATORY SECONDARY TO R ANKLE FRACTURE) General Appearance: In Distress (MODERATE DISTRESS) Head Head Exam: Normal Inspection, Atraumatic and Normocephalic Eyes Eye exam: Normal Appearance, PERRL and EOMI ENT ENT Exam: Normal Exam, Normal Oropharynx and Normal External Ear Exam Neck Neck Exam: Normal Inspection, Full ROM and Trachea Midline Chest Chest Inspection: Normal Inspection and Symmetric Chest Wall Rise Respiratory Respiratory Exam: Normal Lung Sounds Bilat Respiratory Exam: Bilateral: Clear to Auscultation Cardiovascular Cardiovascular Exam: Regular Rate and Normal Rhythm Abdominal Exam Abdominal Exam: Normal Inspection, Normal Bowel Sounds and Soft Extremities Extremities Exam: Normal Inspection and Full ROM Upper Extremities Shoulder Exam: Normal Inspection Arm Exam: Normal Inspection Elbow Exam: Normal Inspection Forearm Exam: Normal Inspection Hand Exam: Normal Inspection Neuromotor Exam: Normal Exam Neurosensory Exam: Normal Exam Lower Extremities Hip/Pelvis Exam: Normal Inspection Upper Leg Exam: Normal Inspection and Full ROM Knee Exam: Normal Inspection and Full ROM Lower Leg Exam: Tenderness and Swelling (R FOOT AND ANKLE) Ankle Exam: Tenderness (R ANKLE) Foot/Toe Exam: Normal Inspection Gait Exam: Not Tested/Not Observed Back Back Exam: Normal Inspection and Full ROM Neurological Neurological Exam: Alert, Oriented X3 and CN II-XII Intact Psychiatric Psychiatric Exam: Normal Affect and Normal Mood Skin Skin Exam: Warm, Dry and Intact MDM Differential Diagnosis Differential Diagnosis: Fracture (R MEDIAL AND LATERAL MALLEOLARS) and Sprain (R ANKLE) COURSE Treatment Treatment: DR LOUISE CAME TO ER AND REDUCED AND SET THE BONES IN R ANKLE. HE STATE THAT THE PATIENT NEEDED TO BE ADMITTED FOR PAIN CONTROL AND INABILITY TO AMBULATE. ANTICIPATING TRANSFER TO REHAB FACILITY. SPOKE TO DR AMIN AT 2343 AND HE TOLD THENURSE TO ADMIT THE PATIENT TO HIS SERVICES. [facility] Labs Reviewed Laboratory Results Reviewed?: Yes Result Diagrams: 12/09/22 22:50 12/09/22 22:50 Laboratory: WBC 11.3 X10^3/uL (3.6-10.0) H 12/09/22 22:50 RBC 4.95 X10^6/uL (3.5-5.4) 12/09/22 22:50 Hgb 12.6 g/dL (12.0-16.0) 12/09/22 22:50 Hct 37.3 % (36.0-47.0) 12/09/22 22:50 MCV 75.4 fL (80.0-100.0) L 12/09/22 22:50 MCH 25.4 pg (27.0-34.0) L 12/09/22 22:50 MCHC 33.6 g/dL (33.0-35.0) 12/09/22 22:50 RDW 15.8 % (11.6-16.5) 12/09/22 22:50 Plt Count 180 X10^3/uL (150.0-450.0) 12/09/22 22:50 MPV 8.2 fL (7.4-11.0) 12/09/22 22:50 Neut % (Auto) 87.7 % (42.0-75.0) H 12/09/22 22:50 Lymph % (Auto) 6.8 % (21.0-51.0) L 12/09/22 22:50 [place] % (Auto) 4.8 % (0.0-13.0) 12/09/22 22:50 Eos % (Auto) 0.4 % (0.9-2.9) L 12/09/22 22:50 Baso % (Auto) 0.3 % (0.2-1.0) 12/09/22 22:50 Neut # (Auto) 9.9 x10^3/uL (2.2-4.8) H 12/09/22 22:50 Lymph # (Auto) 0.8 X10^3/uL (1.3-2.9) L 12/09/22 22:50 [place] # (Auto) 0.5 x10^3/uL (0.3-0.8) 12/09/22 22:50 Eos # (Auto) 0.0 x10^3/uL (0.0-0.2) 12/09/22 22:50 Baso # (Auto) 0.0 X10^3/uL (0.0-0.1) 12/09/22 22:50 Absolute Nucleated RBC 0.1 /100WBC 12/09/22 22:50 Sodium 142 mmol/L (136-145) 12/09/22 22:50 Corrected Sodium TNP 12/09/22 22:50 Potassium 3.1 mmol/L (3.5-5.1) L 12/09/22 22:50 Chloride 102 mmol/L (98-107) 12/09/22 22:50 Carbon Dioxide 30.5 mmol/L (21-32) 12/09/22 22:50 BUN 20 mg/dL (7-18) H 12/09/22 22:50 Creatinine 0.89 mg/dL (0.55-1.02) 12/09/22 22:50 Est GFR (MDRD) Af Amer > 60 (>60) 12/09/22 22:50 Est GFR (MDRD) Non-Af > 60 (>60) 12/09/22 22:50 Glucose 109 mg/dL (65-99) H 12/09/22 22:50 Calcium 9.0 mg/dL (8.5-10.1) 12/09/22 22:50 Corrected Calcium TNP 12/09/22 22:50 Total Bilirubin 0.50 mg/dL (0.2-1.0) 12/09/22 22:50 AST 30 Units/L (15-37) 12/09/22 22:50 ALT 29 Units/L (12-78) 12/09/22 22:50 Alkaline Phosphatase 44 Units/L (46-116) L 12/09/22 22:50 Total Protein 7.0 g/dL (6.4-8.2) 12/09/22 22:50 Albumin 3.9 g/dL (3.4-5.0) 12/09/22 22:50 Globulin 3.1 g/dL (2.5-4.5) 12/09/22 22:50 Albumin/Globulin Ratio 1.3 Ratio (1.1-2.1) 12/09/22 22:50 Opioid Opioid Risk Tool Age (Gamaliel box if 16-45): No History of Preadolescent Sexual Abuse: No Total: 0 Total Score Risk Category: Low Risk Copyright: Naun ARAGON predicting aberrant behaviors Discharge Plan Diagnosis Discharge Problem: Closed fracture of right fibula and tibia, Pain management Discharge Plan Patient Disposition: ADMITTED INPATIENT Condition: Stable Orders to Discharge Patient Discharge Orders: Transfer (Routine); Ordered 12/10/22 Ordered By: Ezekiel Leong
[2022-12-09] MEDS ORDERED: NORCO 5/325 MG TAB ONE (23:40)
[2022-12-09] MEDS ORDERED: ZOFRAN INJ 4 MG VIAL IVP PRN (23:55)
[2022-12-09] MEDS ORDERED: ZOFRAN TAB 4 MG SL PRN (23:55)
[2022-12-10] MEDS ORDERED: NS + KCL 20 MEQ/L 1,000 ML IV ONE (00:08)
[2022-12-10] MEDS: NS + KCL 20 MEQ/L 1,000 ML IV SCH ×3 (00:24→16:39)
[2022-12-10] MEDS ORDERED: K-RIDER 10 MEQ/NS 100 ML 10 MEQ/100 ML BAG IV PRN (01:05)
[2022-12-10] MEDS ORDERED: MICRO K EXTEN CAP 10 MEQ PO PRN (01:05)
[2022-12-10] MEDS ORDERED: POTASSIUM CHL 60 MEQ/NS 0.45% 500 ML IV PRN (01:05)
[2022-12-10] MEDS ORDERED: POTASSIUM CHLORIDE LIQ 20 MEQ UDC PO PRN (01:05)
[2022-12-10] MEDS ORDERED: KLOR-CON PO PRN (01:05)
[2022-12-10] MEDS ORDERED: POTASSIUM CHL 40 MEQ/NS 0.45% 500 ML IV PRN (01:05)
[2022-12-10] MEDS: MAGNESIUM SULFATE 1 GRAM/100 mL PREMIX 1 G/100 ML BAG IV PRN ×2 (01:25→02:25)
[2022-12-10] MEDS: K-DUR TAB 20 MEQ PO PRN (01:25)
[2022-12-10] MEDS: ULTRAM PO PRN ×4 (04:57→20:45)
[2022-12-10 06:23] LABS: BASOPHILS % (AUTO) 0.5 % (0.2-1.0); EOSINOPHILS # (AUTO) 0.1 x10^3/uL (0.0-0.2); EOSINOPHILS % (AUTO) 0.9 % (0.9-2.9); HEMATOCRIT 31.2 % (36.0-47.0); HEMOGLOBIN 10.7 g/dL (12.0-16.0); LYMPHOCYTES # (AUTO) 0.8 X10^3/uL (1.3-2.9); LYMPHOCYTES % (AUTO) 13.6 % (21.0-51.0); MEAN CORPUSCULAR HGB CONC 34.3 g/dL (33.0-35.0); MEAN CORPUSCULAR VOLUME 75.8 fL (80.0-100.0); MEAN PLATELET VOLUME 8.3 fL (7.4-11.0); MONOCYTES # (AUTO) 0.5 x10^3/uL (0.3-0.8); NEUTROPHILS # (AUTO) 4.6 x10^3/uL (2.2-4.8); PLATELET COUNT 147 X10^3/uL (150.0-450.0); RED BLOOD COUNT 4.11 X10^6/uL (3.5-5.4); RED CELL DISTRIBUTION WIDTH 15.9 % (11.6-16.5)
[2022-12-10 06:33] LABS: ALANINE AMINOTRANSFERASE 25 Units/L (12-78); ALBUMIN 3.2 g/dL (3.4-5.0); ALKALINE PHOSPHATASE 34 Units/L (46-116); ASPARTATE AMINO TRANSFERASE 26 Units/L (15-37); BLOOD UREA NITROGEN 18 mg/dL (7-18); CALCIUM 8.4 mg/dL (8.5-10.1); CARBON DIOXIDE 29.8 mmol/L (21-32); CHLORIDE 104 mmol/L (98-107); CREATININE 0.67 mg/dL (0.55-1.02); GLUCOSE 97 mg/dL (65-99); POTASSIUM 3.3 mmol/L (3.5-5.1); SODIUM 140 mmol/L (136-145); TOTAL PROTEIN 5.9 g/dL (6.4-8.2); eGFR NON BLACK RACES > 60 (>60)
--- NOTE | 2022-12-10 07:52 | RAD ---
HISTORYPost reductionSTUDYRight ankle three viewsCOMPARISONNoneFINDINGSHeavy cast material is present, limiting visualization of bone detail.There is an acute undisplaced fracture of the medial malleolus with an additional oblique fracture of the distal fibula. The joint space is symmetric.IMPRESSIONBimalleolar ankle fracture without dislocation identified. Detail is limited and there is no prior exam for comparison to confirm stability.Electronically signed by: MARVA QUINTANA (December 10, 2022 07:51:54)
--- NOTE | 2022-12-10 09:31 | NOTE.SOAP ---
Soap Note Note for Day of Date of Exam: 12/09/22 Subjective Data Subjective Data: This is a72 year old female who presented to the emergency room following a low energy rotational injury to her lower extremity. Patient was sewn in the emergency room by for closed reduction and splinting. Injury occurred yesterday and she was seen in the office for x-rays. She continues to have pain in the ankle that has not been well controlled. She has weight bearing and palpation as aggravating factors . No alleviating factor's . No treatment prior to emergency room visit. I did not see the patient, this is from Dr. Betancourt request that a note be placed. Objective Data Objective Data: Right ankle is swollen and painful to touch. No gross deformity noted post reduction. Compartments are soft ad compressible. Neurovascular intact, pulses palpable, cft brisk to digits. No evidence of DVT. No breaks in skin. Able to wiggle digits. Assessment Assessment: Right ankle fracture Plan Plan: Plan for orif / TTC nail of right ankle this week, pending swelling. Posterior/sugar tong splint applied. Leave intact. Nwb to r foot Low ADLs, will have goal to try to return her to this low level of activity. XRs reviewed. [place] / possible trimal fracture equivalent. Will need rehab / snf placement, as she has stairs at home and is unable to navigate these at this time. Pt / ot / case management consults needed Will follow
[2022-12-10 10:25] VITALS: BMI 31.9
[2022-12-10] MEDS ORDERED: NEURONTIN CAP 300 MG PO ONE (12:01)
--- NOTE | 2022-12-10 12:09 | EKG ---
Test Reason : PRE OP Blood Pressure : */* mmHG Vent. Rate : 75 BPM Atrial Rate : 75 BPM P-R Int : 150 ms QRS Dur : 172 ms QT Int : 460 ms P-R-T Axes : 56 -63 16 degrees QTc Int : 513 ms Normal sinus rhythm Left axis deviation Right bundle branch block Septal infarct , age undetermined Abnormal ECG When compared with ECG of 30-JUN-2022 07:55, Septal infarct is now present Confirmed by Ryan Bailey ([id number]) on 12/11/2022 7:19:06 PM Referred By: Confirmed By: Ryan Bailey
--- NOTE | 2022-12-10 12:43 | RAD ---
HISTORYPreopSTUDYAP chestCOMPARISONNoneFINDINGSTransverse heart diameter normal with clear lungs and pleural spaces.IMPRESSIONNo active or significant chronic chest abnormality.Electronically signed by: MARVA QUINTANA (December 10, 2022 12:42:19)
[2022-12-10 14:30] LABS: APPEARANCE,URINE HAZY (CLEAR); COLOR,URINE STRAW (YELLOW)
[2022-12-10 14:31] LABS: BILIRUBIN,URINE NEGATIVE (NEGATIVE); BLOOD/HEMOGLOBIN,URINE NEGATIVE (NEGATIVE); GLUCOSE, URINE NEGATIVE (NEGATIVE); KETONES,URINE NEGATIVE (NEGATIVE); LEUKOCYTE ESTERASE ,URINE 1+ (NEGATIVE); NITRITES,URINE NEGATIVE (NEGATIVE); PROTEIN,URINE 1+ (NEGATIVE); RBC,URINE NONE SEEN /HPF (0-3); SQUAMOUS EPITHELIAL CELL,UR MODERATE /HPF (NEGATIVE); UROBILINOGEN,URINE NORMAL (NORMAL)
[2022-12-10 14:32] LABS: BACTERIA,URINE 1+ /HPF (NEGATIVE)
--- NOTE | 2022-12-10 14:44 | DR.H&P ---
H&P History & Physical for Day of: H&P Date: 12/10/22 Chief Complaint Chief Complaint: Right ankle pain after fall Allergies Allergies Allergy/AdvReac Type Severity Reaction Status Date / Time Penicillins Allergy Verified 12/09/22 21:54 History of Present Illness History of Present Illness: This is a pleasant 72-year-old white female who was admitted yesterday evening to [facility] after seeing hand shoe cutter, Dr. Francisco Louise's office. He sent the patient to [facility] emergency department for conscious sedation and so that he could do closed reduction and splinting. While in the emergency department she had an x-ray that showed a bimalleolar fracture and a distal fibular fracture. Daughter lab is now planning on an operation once the patient has cardiac clearance by Dr. Bailey when he comes next week. In the meantime we will monitor pain control. She has a history of hypertension, GERD and hypothyroidism. She also has a history of DVT in the left lower extremity. She takes Xarelto for that. She denies any history of cardiac problems and no history of atrial fibrillation. While speaking with the patient this morning she also reports that at nighttime she describes go to bed that she is unable to keep her legs still she has to move around constantly to keep him from hurting. She also reports that she has chronic pain and stinging and burning of her feet and legs. I talked to her about ropinirole for restless leg syndrome and she wishes to try it and gabapentin for the nerve pain in her feet and legs bilaterally. Past Medical History Past Medical History: GERD, Hypertension and Hypothyroidism Additional Medical History: DVT Past Surgical History Surgical History: Cholecystectomy and Other Family History Family Medical History: Diabetes Mellitus and Cancer Social History Alcohol Use: None Drug Use: None Medications Home Medications: Penicillins Allergy (Verified 12/09/22 21:54) CONTINUE taking the following medications amlodipine 2.5 mg tablet 2.5 mg PO HS 12/10/22 [History] hydrochlorothiazide 50 mg tablet 50 mg PO QDAY 12/10/22 [History] levothyroxine 88 mcg tablet 88 mcg PO QDAY 12/10/22 [History] rivaroxaban 20 mg tablet (Xarelto) 20 mg PO QDAY 12/10/22 [History] Labs Result Diagrams: 12/10/22 05:10 12/10/22 10:51 Labs: Laboratory WBC 6.0 X10^3/uL (3.6-10.0) 12/10/22 05:10 RBC 4.11 X10^6/uL (3.5-5.4) 12/10/22 05:10 Hgb 10.7 g/dL (12.0-16.0) L 12/10/22 05:10 Hct 31.2 % (36.0-47.0) L 12/10/22 05:10 MCV 75.8 fL (80.0-100.0) L 12/10/22 05:10 MCH 26.0 pg (27.0-34.0) L 12/10/22 05:10 MCHC 34.3 g/dL (33.0-35.0) 12/10/22 05:10 RDW 15.9 % (11.6-16.5) 12/10/22 05:10 Plt Count 147 X10^3/uL (150.0-450.0) L 12/10/22 05:10 MPV 8.3 fL (7.4-11.0) 12/10/22 05:10 Neut % (Auto) 77.0 % (42.0-75.0) H 12/10/22 05:10 Lymph % (Auto) 13.6 % (21.0-51.0) L 12/10/22 05:10 [place] % (Auto) 8.0 % (0.0-13.0) 12/10/22 05:10 Eos % (Auto) 0.9 % (0.9-2.9) 12/10/22 05:10 Baso % (Auto) 0.5 % (0.2-1.0) 12/10/22 05:10 Neut # (Auto) 4.6 x10^3/uL (2.2-4.8) 12/10/22 05:10 Lymph # (Auto) 0.8 X10^3/uL (1.3-2.9) L 12/10/22 05:10 [place] # (Auto) 0.5 x10^3/uL (0.3-0.8) 12/10/22 05:10 Eos # (Auto) 0.1 x10^3/uL (0.0-0.2) 12/10/22 05:10 Baso # (Auto) 0.0 X10^3/uL (0.0-0.1) 12/10/22 05:10 Absolute Nucleated RBC 0.0 /100WBC 12/10/22 05:10 Sodium 140 mmol/L (136-145) 12/10/22 05:10 Corrected Sodium TNP 12/10/22 05:10 Potassium 4.1 mmol/L (3.5-5.1) 12/10/22 10:51 Chloride 104 mmol/L (98-107) 12/10/22 05:10 Carbon Dioxide 29.8 mmol/L (21-32) 12/10/22 05:10 BUN 18 mg/dL (7-18) 12/10/22 05:10 Creatinine 0.67 mg/dL (0.55-1.02) 12/10/22 05:10 Est GFR (MDRD) Af Amer > 60 (>60) 12/10/22 05:10 Est GFR (MDRD) Non-Af > 60 (>60) 12/10/22 05:10 Glucose 97 mg/dL (65-99) 12/10/22 05:10 Calcium 8.4 mg/dL (8.5-10.1) L 12/10/22 05:10 Corrected Calcium 9.0 mg/dL (8.5-10.1) 12/10/22 05:10 Magnesium 2.3 mg/dL (2.0-2.9) 12/10/22 05:10 Total Bilirubin 0.50 mg/dL (0.2-1.0) 12/10/22 05:10 AST 26 Units/L (15-37) 12/10/22 05:10 ALT 25 Units/L (12-78) 12/10/22 05:10 Alkaline Phosphatase 34 Units/L (46-116) L 12/10/22 05:10 Total Protein 5.9 g/dL (6.4-8.2) L 12/10/22 05:10 Albumin 3.2 g/dL (3.4-5.0) L 12/10/22 05:10 Globulin 2.7 g/dL (2.5-4.5) 12/10/22 05:10 Albumin/Globulin Ratio 1.2 Ratio (1.1-2.1) 12/10/22 05:10 Review of Systems Constitutional: No Symptoms Reported Eyes: No Symptoms Reported ENT: No Symptoms Reported Respiratory: No Symptoms Reported Cardiovascular: No Symptoms Reported Gastrointestinal: No Symptoms Reported Genitourinary: No Symptoms Reported Musculoskeletal: Leg Pain Skin: No Symptoms Reported Neurological: No Symptoms Reported Physical Exam Vital Signs: Temperature 98.8 F Pulse Rate [Apical] 78 Pulse Rate 71 Respiratory Rate 20 Blood Pressure [Right Arm] 131/62 Blood Pressure [Left Arm] 174/78 Blood Pressure 178/79 O2 Sat by Pulse Oximetry 94 Oriented: Normal, Time and Person Eyes: Normal Nose: Normal Respiratory: Clear Throughout Cardiovascular: Normal Auscultation: Bowel Sounds: Normal Palpation: Normal Tenderness: Normal Skin: Normal Musculoskeletal: Right and Ankle (Pain) Psychiatric: Normal Mood Description: Calm Affect: Normal; negative Anxious, Depressed, Flat or Quiet Speech Pattern: Clear and Appropriate; negative Inappropriate Assessment/Plan (1) Dislocation of ankle, right, closed: Status: Acute Plan: Treatment per podiatry. (2) Bimalleolar fracture of right ankle: Status: Acute Plan: Treatment per podiatry. (3) Essential (primary) hypertension: Status: Acute Plan: Continue metoprolol tartrate 25 mg twice daily amlodipine 2.5 mg p.o. nightly and hydrochlorothiazide 50 mg daily. (4) Pain management: Status: Acute Plan: Continue as needed morphine sulfate along with hydrocodone. (5) GERD (gastroesophageal reflux disease): Status: Acute Plan: Continue omeprazole 40 mg daily. (6) Hypothyroidism: Status: Acute Plan: Continue levothyroxine 88 mcg daily. (7) Preoperative clearance: Status: Acute Plan: Check chest x-ray, urinalysis, EKG as patient's CBC and CMP have already been drawn. (8) Depression: Status: Acute Plan: Continue citalopram 40 mg daily. (9) Restless leg syndrome: Status: Acute Plan: Start ropinirole 1 mg at bedtime. Recheck with patient in the morning see if it is helping. (10) Neuropathy: Status: Acute Plan: I will start the patient on gabapentin 300 mg today, then 3 mg twice daily tomorrow then 300 mg 3 times daily thereafter.
--- NOTE | 2022-12-10 15:11 | NOTE.SOAP ---
Soap Note Note for Day of Date of Exam: 12/10/22 Subjective Data Subjective Data: patient seen bedside comfortable. NAD. daughter bedside. discomfort to ankle but stable. Objective Data Objective Data: Toes with CFT. splint in position. ankle rectus. anterior splint appears ok and without blisters anterior or lateral .medial unable to see due to padding. left knee with pain over tibial plateau minor effusion of the joint. Assessment Assessment: 72 F with bimalleolar fracture dislocation of the right ankle. S/P closed reduction day one. Plan Plan: patient NWB. awaiting PT eval for snf placement, unable to stay off foot and unable to care for self at home. patient will need surgical reconstruction and planning for however EKG with changes and may need further cardio workup. will have cardio see her prior to surgery. patient with now left knee pain. will obtain left knee x rays to see if fracture. doesn't appear to need aspiration at this time. discussed sx options of the right ankle and will need either fibula nail with medial plating or will need hindfoot fusion with nail. discussed both surgeries but the nail would be smaller incisions, but both would require limited WB in post op but would be able to WB for transfer in the post op right after surgery but full walking will likely be around a month with both methods. we will do a skin check on likely monday to see what surgical plan will be for monday. awaiting CT scan as well.
--- NOTE | 2022-12-10 18:32 | RAD ---
HISTORYPAINFUL LEFT KNEE, SWELLINGSTUDYKNEE, AP/LAT LEFTCOMPARISONNoneFINDINGSNo evidence for acute cortical disruption or dislocation. Mild tricompartmental osteoarthrosis, worst in the lateral compartment. No large knee joint effusion.IMPRESSIONNo acute fracture or dislocation.Electronically signed by: TERRI SOLIZ (December 10, 2022 18:30:36)
--- NOTE | 2022-12-10 20:40 | CT ---
STUDY: CT LOWER EXTREMITY WITHOUT IV CONTRASTCOMPARISON: NoneTECHNIQUE: axial images were acquired of the lower extremity without IV contrast. Sagittal and coronal reformatted images were provided. All images were reviewed in a variety of windows and levels.RADIATION REDUCTION TECHNIQUE: Automated exposure control, Adjustment of the mA and/or kV according to patient size, or iterative reconstruction techniques were used.HISTORY: RIGHT LOWER EXT FRACTUREFINDINGS:Please note that lack of IV contrast limits evaluation of soft tissue structures and vascular detail.It should be noted that the images as well as the title on the PACS study does not identify whether this is the right or left lower extremity. Therefore verification of injury with respect to laterality is not definitively clear on this examination. However, the history states that the injury is in the right lower extremity.There is a displaced fracture of the distal fibula at the level of the lateral malleolus as well as the distal fibular diaphysis. There is a displaced fracture of the medial malleolus. There is malalignment of the tibiotalar syndesmosis. Extensive soft tissue edema with fluid S stranding and inflammation is seen around the fracture sites. Diffuse osteopenia with degenerative changes are noted. No evidence of an osteochondral lesion in the talar dome.IMPRESSION:Fracture of lateral malleolus and distal tibia as detailed above with extensive soft tissue swellingEl ectronically signed by: Fly Mena (December 10, 2022 20:39:14)
[2022-12-10] MEDS: REQUIP PO SCH (20:45)
[2022-12-10] MEDS: DESYREL PO SCH (20:45)
[2022-12-10] MEDS ORDERED: STERILE WATER IRRIGATION IR ONE (21:32)
[2022-12-11] MEDS: NS + KCL 20 MEQ/L 1,000 ML IV SCH ×3 (01:31→19:27)
[2022-12-11 05:24] LABS: BASOPHILS % (AUTO) 0.5 % (0.2-1.0); EOSINOPHILS # (AUTO) 0.1 x10^3/uL (0.0-0.2); EOSINOPHILS % (AUTO) 1.4 % (0.9-2.9); HEMATOCRIT 27.5 % (36.0-47.0); HEMOGLOBIN 9.3 g/dL (12.0-16.0); LYMPHOCYTES # (AUTO) 0.7 X10^3/uL (1.3-2.9); LYMPHOCYTES % (AUTO) 12.5 % (21.0-51.0); MEAN CORPUSCULAR HEMOGLOBIN 25.8 pg (27.0-34.0); MEAN CORPUSCULAR HGB CONC 33.9 g/dL (33.0-35.0); MEAN CORPUSCULAR VOLUME 76.1 fL (80.0-100.0); MEAN PLATELET VOLUME 8.3 fL (7.4-11.0); MONOCYTES # (AUTO) 0.6 x10^3/uL (0.3-0.8); NEUTROPHILS # (AUTO) 4.3 x10^3/uL (2.2-4.8); NEUTROPHILS % (AUTO) 74.6 % (42.0-75.0); PLATELET COUNT 131 X10^3/uL (150.0-450.0); RED BLOOD COUNT 3.61 X10^6/uL (3.5-5.4); WHITE BLOOD COUNT 5.8 X10^3/uL (3.6-10.0)
[2022-12-11 05:41] LABS: ALANINE AMINOTRANSFERASE 19 Units/L (12-78); ALBUMIN 2.8 g/dL (3.4-5.0); ALKALINE PHOSPHATASE 31 Units/L (46-116); ASPARTATE AMINO TRANSFERASE 20 Units/L (15-37); BLOOD UREA NITROGEN 12 mg/dL (7-18); CALCIUM 7.8 mg/dL (8.5-10.1); CARBON DIOXIDE 27.9 mmol/L (21-32); CHLORIDE 103 mmol/L (98-107); COR CA(FOR HYPOALB) 8.8 mg/dL (8.5-10.1); CREATININE 0.63 mg/dL (0.55-1.02); GLUCOSE 105 mg/dL (65-99); POTASSIUM 3.8 mmol/L (3.5-5.1); SODIUM 138 mmol/L (136-145); TOTAL PROTEIN 5.5 g/dL (6.4-8.2); eGFR NON BLACK RACES > 60 (>60)
[2022-12-11 06:03] LABS: INR 1.19 (0.8-1.3)
[2022-12-11] MEDS: MORPHINE SULFATE INJ 2 MG INJ IVP PRN (09:40)
[2022-12-11] MEDS: NEURONTIN CAP 300 MG PO SCH ×2 (09:40→20:03)
--- NOTE | 2022-12-11 14:12 | PCM.PROG ---
Progress Note Progress Note for Day of Date of Exam: 12/11/22 Subjective Subjective: The patient is resting comfortably this morning. Pain seems to be fairly well controlled. She had a CT scan of the right lower extremity yesterday showed a lateral malleolar fracture and a distal fibula fracture. It also showed a significant amount of soft tissue swelling. Currently we are awaiting cardiac clearance by Dr. Bailey who I understand may be sending his nurse practitioner tomorrow to try to get the patient cleared before Monday so podiatry can proceed with surgical fixation. Past Medical Family Social History Allergies: Allergies Penicillins Allergy (Verified 12/09/22 21:54) Review of Systems ROS: No change since H&P Vital Signs and I&O's Vital Signs: Temperature 98.0 F Pulse Rate [Apical] 70 Pulse Rate 71 Respiratory Rate 20 Blood Pressure [Right Arm] 142/70 Blood Pressure [Left Arm] 174/78 Blood Pressure 178/79 O2 Sat by Pulse Oximetry 96 Intake and Output: Intake & Output 12/09/22 12/10/22 12/11/22 12/12/22 11:59 11:59 11:59 11:59 Intake Total 930 / 930 5558 / 5558 Balance 930 / 930 5558 / 5558 Physical Exam Oriented: Normal, Time and Person Eyes: Normal Nose: Normal Cardiovascular: Normal Auscultation: Bowel Sounds: Normal Tenderness: Normal Skin: Normal Musculoskeletal: Right and Ankle (Pain) Psychiatric: Normal Mood Description: Calm Affect: Normal; negative Anxious, Depressed, Flat or Quiet Speech Pattern: Clear and Appropriate Laboratory and Diagnostics Result Diagrams: 12/11/22 04:50 12/11/22 04:50 Labs: Laboratory WBC 5.8 X10^3/uL (3.6-10.0) 12/11/22 04:50 RBC 3.61 X10^6/uL (3.5-5.4) 12/11/22 04:50 Hgb 9.3 g/dL (12.0-16.0) L 12/11/22 04:50 Hct 27.5 % (36.0-47.0) L 12/11/22 04:50 MCV 76.1 fL (80.0-100.0) L 12/11/22 04:50 MCH 25.8 pg (27.0-34.0) L 12/11/22 04:50 MCHC 33.9 g/dL (33.0-35.0) 12/11/22 04:50 RDW 16.0 % (11.6-16.5) 12/11/22 04:50 Plt Count 131 X10^3/uL (150.0-450.0) L 12/11/22 04:50 MPV 8.3 fL (7.4-11.0) 12/11/22 04:50 Neut % (Auto) 74.6 % (42.0-75.0) 12/11/22 04:50 Lymph % (Auto) 12.5 % (21.0-51.0) L 12/11/22 04:50 [place] % (Auto) 11.0 % (0.0-13.0) 12/11/22 04:50 Eos % (Auto) 1.4 % (0.9-2.9) 12/11/22 04:50 Baso % (Auto) 0.5 % (0.2-1.0) 12/11/22 04:50 Neut # (Auto) 4.3 x10^3/uL (2.2-4.8) 12/11/22 04:50 Lymph # (Auto) 0.7 X10^3/uL (1.3-2.9) L 12/11/22 04:50 [place] # (Auto) 0.6 x10^3/uL (0.3-0.8) 12/11/22 04:50 Eos # (Auto) 0.1 x10^3/uL (0.0-0.2) 12/11/22 04:50 Baso # (Auto) 0.0 X10^3/uL (0.0-0.1) 12/11/22 04:50 Absolute Nucleated RBC 0.0 /100WBC 12/11/22 04:50 PT 14.9 SECONDS (11.8-14.3) 12/11/22 04:50 INR Target Range - 12/11/22 04:50 INR 1.19 (0.8-1.3) 12/11/22 04:50 APTT 39.2 SECONDS (22.9-36.5) H 12/11/22 04:50 PTT Comment - 12/11/22 04:50 Sodium 138 mmol/L (136-145) 12/11/22 04:50 Corrected Sodium TNP 12/11/22 04:50 Potassium 3.8 mmol/L (3.5-5.1) 12/11/22 04:50 Chloride 103 mmol/L (98-107) 12/11/22 04:50 Carbon Dioxide 27.9 mmol/L (21-32) 12/11/22 04:50 BUN 12 mg/dL (7-18) 12/11/22 04:50 Creatinine 0.63 mg/dL (0.55-1.02) 12/11/22 04:50 Est GFR (MDRD) Af Amer > 60 (>60) 12/11/22 04:50 Est GFR (MDRD) Non-Af > 60 (>60) 12/11/22 04:50 Glucose 105 mg/dL (65-99) H 12/11/22 04:50 Calcium 7.8 mg/dL (8.5-10.1) L 12/11/22 04:50 Corrected Calcium 8.8 mg/dL (8.5-10.1) 12/11/22 04:50 Magnesium 2.3 mg/dL (2.0-2.9) 12/10/22 05:10 Total Bilirubin 0.50 mg/dL (0.2-1.0) 12/11/22 04:50 AST 20 Units/L (15-37) 12/11/22 04:50 ALT 19 Units/L (12-78) 12/11/22 04:50 Alkaline Phosphatase 31 Units/L (46-116) L 12/11/22 04:50 Total Protein 5.5 g/dL (6.4-8.2) L 12/11/22 04:50 Albumin 2.8 g/dL (3.4-5.0) L 12/11/22 04:50 Globulin 2.7 g/dL (2.5-4.5) 12/11/22 04:50 Albumin/Globulin Ratio 1.0 Ratio (1.1-2.1) L 12/11/22 04:50 Specimen Type Clean catch urine 12/10/22 14:07 Urine Color Straw (YELLOW) 12/10/22 14:07 Urine Appearance Hazy (CLEAR) 12/10/22 14:07 Urine pH 7.0 (5.0 - 8.0) 12/10/22 14:07 Ur Specific [place] 1.015 (1.000-1.030) 12/10/22 14:07 Urine Protein 1+ (NEGATIVE) 12/10/22 14:07 Urine Glucose (UA) Negative (NEGATIVE) 12/10/22 14:07 Urine Ketones Negative (NEGATIVE) 12/10/22 14:07 Urine Blood Negative (NEGATIVE) 12/10/22 14:07 Urine Nitrite Negative (NEGATIVE) 12/10/22 14:07 Urine Bilirubin Negative (NEGATIVE) 12/10/22 14:07 Urine Urobilinogen Normal (NORMAL) 12/10/22 14:07 Ur Leukocyte Esterase 1+ (NEGATIVE) 12/10/22 14:07 Urine RBC None seen /HPF (0-3) 12/10/22 14:07 Urine WBC 3-5 /HPF (0-5) 12/10/22 14:07 Ur Squamous Epith Cells Moderate /HPF (NEGATIVE) 12/10/22 14:07 Amorphous Sediment 3+ /HPF (NEGATIVE) 12/10/22 14:07 Urine Bacteria 1+ /HPF (NEGATIVE) 12/10/22 14:07 Ur Culture Indicated? No/not indicated 12/10/22 14:07 Radiology Reviewed: Yes Plan (1) Dislocation of ankle, right, closed: Status: Acute Plan: Treatment per podiatry. (2) Bimalleolar fracture of right ankle: Status: Acute Plan: Treatment per podiatry. (3) Essential (primary) hypertension: Status: Acute Plan: Continue metoprolol tartrate 25 mg twice daily, amlodipine 2.5 mg p.o. nightly and hydrochlorothiazide 50 mg daily. (4) Pain management: Status: Acute Plan: Continue as needed morphine sulfate along with hydrocodone. (5) GERD (gastroesophageal reflux disease): Status: Acute Plan: Continue omeprazole 40 mg daily. (6) Hypothyroidism: Status: Acute Plan: Continue levothyroxine 88 mcg daily. (7) Preoperative clearance: Status: Acute Plan: Awaiting cardiac consultation for cardiac clearance. (8) Depression: Status: Acute Plan: Continue citalopram 40 mg daily. (9) Restless leg syndrome: Status: Acute Plan: Start ropinirole 1 mg at bedtime. Recheck with patient in the morni ng see if it is helping. (10) Neuropathy: Status: Acute Plan: I will start the patient on gabapentin 300 mg today, then 3 mg twice daily tomorrow then 300 mg 3 times daily thereafter.
[2022-12-11] MEDS: ULTRAM PO PRN (19:27)
[2022-12-11] MEDS: K-DUR TAB 20 MEQ PO PRN (20:02)
[2022-12-11] MEDS: REQUIP PO SCH (20:02)
[2022-12-11] MEDS: DESYREL PO SCH (20:02)
[2022-12-12] MEDS: ULTRAM PO PRN (00:17)
[2022-12-12] MEDS: NS + KCL 20 MEQ/L 1,000 ML IV SCH ×4 (01:38→19:30)
[2022-12-12] MEDS: NEURONTIN CAP 300 MG PO SCH ×3 (05:22→21:12)
[2022-12-12 06:01] LABS: BASOPHILS % (AUTO) 0.4 % (0.2-1.0); EOSINOPHILS # (AUTO) 0.1 x10^3/uL (0.0-0.2); EOSINOPHILS % (AUTO) 2.1 % (0.9-2.9); HEMATOCRIT 28.1 % (36.0-47.0); HEMOGLOBIN 9.4 g/dL (12.0-16.0); LYMPHOCYTES # (AUTO) 0.7 X10^3/uL (1.3-2.9); LYMPHOCYTES % (AUTO) 11.9 % (21.0-51.0); MEAN CORPUSCULAR HEMOGLOBIN 25.6 pg (27.0-34.0); MEAN CORPUSCULAR HGB CONC 33.5 g/dL (33.0-35.0); MEAN CORPUSCULAR VOLUME 76.3 fL (80.0-100.0); MEAN PLATELET VOLUME 8.3 fL (7.4-11.0); MONOCYTES # (AUTO) 0.6 x10^3/uL (0.3-0.8); MONOCYTES % (AUTO) 9.7 % (0.0-13.0); NEUTROPHILS # (AUTO) 4.8 x10^3/uL (2.2-4.8); NEUTROPHILS % (AUTO) 75.9 % (42.0-75.0); PLATELET COUNT 125 X10^3/uL (150.0-450.0); RED BLOOD COUNT 3.69 X10^6/uL (3.5-5.4); RED CELL DISTRIBUTION WIDTH 15.8 % (11.6-16.5); WHITE BLOOD COUNT 6.3 X10^3/uL (3.6-10.0)
[2022-12-12 06:19] LABS: ALANINE AMINOTRANSFERASE 14 Units/L (12-78); ALBUMIN 2.5 g/dL (3.4-5.0); ALKALINE PHOSPHATASE 32 Units/L (46-116); ASPARTATE AMINO TRANSFERASE 19 Units/L (15-37); BLOOD UREA NITROGEN 8 mg/dL (7-18); CALCIUM 8.2 mg/dL (8.5-10.1); CARBON DIOXIDE 26.4 mmol/L (21-32); CHLORIDE 106 mmol/L (98-107); COR CA(FOR HYPOALB) 9.4 mg/dL (8.5-10.1); COR NA(FOR HYPERGLY) 140 mmol/L (136-145); CREATININE 0.61 mg/dL (0.55-1.02); GLUCOSE 112 mg/dL (65-99); SODIUM 140 mmol/L (136-145); TOTAL PROTEIN 5.5 g/dL (6.4-8.2); eGFR NON BLACK RACES > 60 (>60)
[2022-12-12] MEDS: PriLOSEC PO SCH (09:55)
[2022-12-12] MEDS: LOPRESSOR TAB 25 MG PO SCH ×2 (09:55→21:12)
[2022-12-12] MEDS: CELEXA PO SCH (09:56)
[2022-12-12] MEDS: SYNTHROID 88 mcg TAB PO SCH (09:56)
--- NOTE | 2022-12-12 12:57 | PCM.PROG ---
Progress Note Progress Note for Day of Date of Exam: 12/12/22 Subjective Subjective: The patient is resting comfortably this morning. Pain seems to be fairly well controlled. She had a CT scan of the right lower extremity 2 days ago and showed a lateral malleolar fracture and a distal fibula fracture. It also showed a significant amount of soft tissue swelling. Regarding cardiac consultation Dr. Bailey will not be able to come early and cannot see her until Monday which is 2 days from now. In the meantime we will continue with pain control. Past Medical Family Social History Allergies: Allergies Penicillins Allergy (Verified 12/09/22 21:54) Review of Systems ROS: No change since H&P Vital Signs and I&O's Vital Signs: Temperature 98.4 F Pulse Rate [Apical] 74 Pulse Rate 71 Respiratory Rate 18 Blood Pressure [Right Arm] 147/67 Blood Pressure [Left Arm] 174/78 Blood Pressure 178/79 O2 Sat by Pulse Oximetry 96 Intake and Output: Intake & Output 12/10/22 12/11/22 12/12/22 12/13/22 11:59 11:59 11:59 11:59 Intake Total 930 / 930 5558 / 5558 4915 / 4915 Balance 930 / 930 5558 / 5558 4915 / 4915 Physical Exam Oriented: Normal, Time and Person Eyes: Normal Nose: Normal Cardiovascular: Normal Auscultation: Bowel Sounds: Normal Tenderness: Normal Skin: Normal Musculoskeletal: Right and Ankle (Pain) Psychiatric: Normal Mood Description: Calm Affect: Normal; negative Anxious, Depressed, Flat or Quiet Speech Pattern: Clear and Appropriate Laboratory and Diagnostics Result Diagrams: 12/12/22 05:12/12/22 05: Labs: Laboratory WBC 6.3 X10^3/uL (3.6-10.0) 12/12/22 05: RBC 3.69 X10^6/uL (3.5-5.4) 12/12/22 05: Hgb 9.4 g/dL (12.0-16.0) L 12/12/22 05: Hct 28.1 % (36.0-47.0) L 12/12/22 05: MCV 76.3 fL (80.0-100.0) L 12/12/22 05: MCH 25.6 pg (27.0-34.0) L 12/12/22 05:23 MCHC 33.5 g/dL (33.0-35.0) 12/12/22 05:23 RDW 15.8 % (11.6-16.5) 12/12/22 05:23 Plt Count 125 X10^3/uL (150.0-450.0) L 12/12/22 05:23 MPV 8.3 fL (7.4-11.0) 12/12/22 05:23 Neut % (Auto) 75.9 % (42.0-75.0) H 12/12/22 05:23 Lymph % (Auto) 11.9 % (21.0-51.0) L 12/12/22 05:23 [place] % (Auto) 9.7 % (0.0-13.0) 12/12/22 05:23 Eos % (Auto) 2.1 % (0.9-2.9) 12/12/22 05:23 Baso % (Auto) 0.4 % (0.2-1.0) 12/12/22 05:23 Neut # (Auto) 4.8 x10^3/uL (2.2-4.8) 12/12/22 05:23 Lymph # (Auto) 0.7 X10^3/uL (1.3-2.9) L 12/12/22 05:23 [place] # (Auto) 0.6 x10^3/uL (0.3-0.8) 12/12/22 05:23 Eos # (Auto) 0.1 x10^3/uL (0.0-0.2) 12/12/22 05:23 Baso # (Auto) 0.0 X10^3/uL (0.0-0.1) 12/12/22 05:23 Absolute Nucleated RBC 0.0 /100WBC 12/12/22 05: PT 14.9 SECONDS (11.8-14.3) 12/11/22 04:50 INR Target Range - 12/11/22 04:50 INR 1.19 (0.8-1.3) 12/11/22 04:50 APTT 39.2 SECONDS (22.9-36.5) H 12/11/22 04:50 PTT Comment - 12/11/22 04:50 Sodium 140 mmol/L (136-145) 12/12/22 05:23 Corrected Sodium 140 mmol/L (136-145) 12/12/22 05:23 Potassium 4.0 mmol/L (3.5-5.1) 12/12/22 05:23 Chloride 106 mmol/L (98-107) 12/12/22 05:23 Carbon Dioxide 26.4 mmol/L (21-32) 12/12/22 05:23 BUN 8 mg/dL (7-18) 12/12/22 05:23 Creatinine 0.61 mg/dL (0.55-1.02) 12/12/22 05:23 Est GFR (MDRD) Af Amer > 60 (>60) 12/12/22 05:23 Est GFR (MDRD) Non-Af > 60 (>60) 12/12/22 05:23 Glucose 112 mg/dL (65-99) H 12/12/22 05:23 Calcium 8.2 mg/dL (8.5-10.1) L 12/12/22 05:23 Corrected Calcium 9.4 mg/dL (8.5-10.1) 12/12/22 05:23 Magnesium 2.3 mg/dL (2.0-2.9) 12/10/22 05:10 Total Bilirubin 0.50 mg/dL (0.2-1.0) 12/12/22 05:23 AST 19 Units/L (15-37) 12/12/22 05:23 ALT 14 Units/L (12-78) 12/12/22 05:23 Alkaline Phosphatase 32 Units/L (46-116) L 12/12/22 05:23 Total Protein 5.5 g/dL (6.4-8.2) L 12/12/22 05:23 Albumin 2.5 g/dL (3.4-5.0) L 12/12/22 05:23 Globulin 3.0 g/dL (2.5-4.5) 12/12/22 05:23 Albumin/Globulin Ratio 0.8 Ratio (1.1-2.1) L 12/12/22 05:23 Specimen Type Clean catch urine 12/10/22 14:07 Urine Color Straw (YELLOW) 12/10/22 14:07 Urine Appearance Hazy (CLEAR) 12/10/22 14:07 Urine pH 7.0 (5.0 - 8.0) 12/10/22 14:07 Ur Specific [place] 1.015 (1.000-1.030) 12/10/22 14:07 Urine Protein 1+ (NEGATIVE) 12/10/22 14:07 Urine Glucose (UA) Negative (NEGATIVE) 12/10/22 14:07 Urine Ketones Negative (NEGATIVE) 12/10/22 14:07 Urine Blood Negative (NEGATIVE) 12/10/22 14:07 Urine Nitrite Negative (NEGATIVE) 12/10/22 14:07 Urine Bilirubin Negative (NEGATIVE) 12/10/22 14:07 Urine Urobilinogen Normal (NORMAL) 12/10/22 14:07 Ur Leukocyte Esterase 1+ (NEGATIVE) 12/10/22 14:07 Urine RBC None seen /HPF (0-3) 12/10/22 14:07 Urine WBC 3-5 /HPF (0-5) 12/10/22 14:07 Ur Squamous Epith Cells Moderate /HPF (NEGATIVE) 12/10/22 14:07 Amorphous Sediment 3+ /HPF (NEGATIVE) 12/10/22 14:07 Urine Bacteria 1+ /HPF (NEGATIVE) 12/10/22 14:07 Ur Culture Indicated? No/not indicated 12/10/22 14:07 Plan (1) Dislocation of ankle, right, closed: Status: Acute Plan: Treatment per podiatry. (2) Bimalleolar fracture of right ankle: Status: Acute Plan: Treatment per podiatry. (3) Essential (primary) hypertension: Status: Acute Plan: Continue metoprolol tartrate 25 mg twice daily, amlodipine 2.5 mg p.o. nightly and continue to hold hydrochlorothiazide 50 mg daily. (4) Pain management: Status: Acute Plan: Continue as needed morphine sulfate along with hydrocodone. (5) GERD (gastroesophageal reflux disease): Status: Acute Plan: Continue omeprazole 40 mg daily. (6) Hypothyroidism: Status: Acute Plan: Continue levothyroxine 88 mcg daily. (7) Preoperative clearance: Status: Acute Plan: Awaiting cardiac consultation for cardiac clearance. (8) Depression: Status: Acute Plan: Continue citalopram 40 mg daily. (9) Restless leg syndrome: Status: Acute Plan: Start ropinirole 1 mg at bedtime. Recheck with patient in the morning see if it is helping. (10) Neuropathy: Status: Acute Plan: I will start the patient on gabapentin 300 mg today, then 3 mg twice daily tomorrow then 300 mg 3 times daily thereafter.
[2022-12-12] MEDS: NORCO 5/325 MG TAB PO PRN ×2 (15:15→21:12)
[2022-12-12] MEDS ORDERED: NORVASC TAB 2.5 MG ONE (20:41)
[2022-12-12] MEDS: CRESTOR TAB 10 MG PO SCH (21:11)
[2022-12-12] MEDS: NORVASC TAB 2.5 MG PO SCH (21:11)
[2022-12-12] MEDS: REQUIP PO SCH (21:12)
[2022-12-12] MEDS: DESYREL PO SCH (21:13)
[2022-12-13] MEDS: NS + KCL 20 MEQ/L 1,000 ML IV SCH ×6 (01:36→20:52)
[2022-12-13] MEDS: NEURONTIN CAP 300 MG PO SCH ×3 (05:53→22:17)
[2022-12-13 06:07] LABS: BASOPHILS % (AUTO) 0.5 % (0.2-1.0); EOSINOPHILS # (AUTO) 0.2 x10^3/uL (0.0-0.2); EOSINOPHILS % (AUTO) 3.8 % (0.9-2.9); HEMATOCRIT 25.5 % (36.0-47.0); HEMOGLOBIN 8.8 g/dL (12.0-16.0); LYMPHOCYTES # (AUTO) 0.7 X10^3/uL (1.3-2.9); LYMPHOCYTES % (AUTO) 13.9 % (21.0-51.0); MEAN CORPUSCULAR HEMOGLOBIN 26.3 pg (27.0-34.0); MEAN CORPUSCULAR HGB CONC 34.4 g/dL (33.0-35.0); MEAN CORPUSCULAR VOLUME 76.5 fL (80.0-100.0); MONOCYTES # (AUTO) 0.4 x10^3/uL (0.3-0.8); MONOCYTES % (AUTO) 9.3 % (0.0-13.0); NEUTROPHILS # (AUTO) 3.5 x10^3/uL (2.2-4.8); NEUTROPHILS % (AUTO) 72.5 % (42.0-75.0); PLATELET COUNT 131 X10^3/uL (150.0-450.0); RED BLOOD COUNT 3.33 X10^6/uL (3.5-5.4); WHITE BLOOD COUNT 4.8 X10^3/uL (3.6-10.0)
[2022-12-13 06:15] LABS: ALANINE AMINOTRANSFERASE 16 Units/L (12-78); ALBUMIN 2.3 g/dL (3.4-5.0); ALKALINE PHOSPHATASE 32 Units/L (46-116); ASPARTATE AMINO TRANSFERASE 12 Units/L (15-37); BLOOD UREA NITROGEN 7 mg/dL (7-18); CARBON DIOXIDE 27.6 mmol/L (21-32); CHLORIDE 108 mmol/L (98-107); COR CA(FOR HYPOALB) 9.4 mg/dL (8.5-10.1); CREATININE 0.62 mg/dL (0.55-1.02); GLUCOSE 98 mg/dL (65-99); POTASSIUM 3.9 mmol/L (3.5-5.1); SODIUM 140 mmol/L (136-145); TOTAL PROTEIN 5.2 g/dL (6.4-8.2); eGFR NON BLACK RACES > 60 (>60)
[2022-12-13] MEDS: PriLOSEC PO SCH (09:27)
[2022-12-13] MEDS: SYNTHROID 88 mcg TAB PO SCH (09:28)
[2022-12-13] MEDS: LOPRESSOR TAB 25 MG PO SCH ×2 (09:28→20:50)
[2022-12-13] MEDS: CELEXA PO SCH (09:28)
--- NOTE | 2022-12-13 13:37 | PCM.PROG ---
Progress Note Progress Note for Day of Date of Exam: 12/13/22 Subjective Subjective: The patient is resting comfortably this morning. Pain seems to be fairly well controlled. She had a CT scan of the right lower extremity 3 days ago and showed a lateral malleolar fracture and a distal fibula fracture. It also showed a significant amount of soft tissue swelling. Patient is awaiting cardiac clearance tomorrow by station helper, Dr. Bailey. I see the patient's hemoglobin has been dropping and this morning she is 8.8. We will continue to monitor this and we will repeat a CBC tomorrow morning. Past Medical Family Social History Allergies: Allergies Penicillins Allergy (Verified 12/09/22 21:54) Review of Systems ROS: No change since H&P Vital Signs and I&O's Vital Signs: Temperature 98.8 F Pulse Rate [Apical] 78 Pulse Rate 71 Respiratory Rate 20 Blood Pressure [Right Arm] 159/70 Blood Pressure [Left Arm] 174/78 Blood Pressure 178/79 O2 Sat by Pulse Oximetry 98 Intake and Output: Intake & Output 12/11/22 12/12/22 12/13/22 12/14/22 11:59 11:59 11:59 11:59 Intake Total 5558 / 5558 4915 / 4915 1420 / 1420 Balance 5558 / 5558 4915 / 4915 1420 / 1420 Physical Exam Oriented: Normal, Time and Person Eyes: Normal Nose: Normal Respiratory: Normal Cardiovascular: Normal Auscultation: Bowel Sounds: Normal Tenderness: Normal Skin: Normal Musculoskeletal: Right and Ankle (Pain) Psychiatric: Normal Mood Description: Calm Affect: Normal; negative Anxious, Depressed, Flat or Quiet Speech Pattern: Clear and Appropriate Laboratory and Diagnostics Result Diagrams: 12/13/22 05:35 12/13/22 05:35 Labs: Laboratory WBC 4.8 X10^3/uL (3.6-10.0) 12/13/22 05:35 RBC 3.33 X10^6/uL (3.5-5.4) L 12/13/22 05:35 Hgb 8.8 g/dL (12.0-16.0) L 12/13/22 05:35 Hct 25.5 % (36.0-47.0) L 12/13/22 05:35 MCV 76.5 fL (80.0-100.0) L 12/13/22 05:35 MCH 26.3 pg (27.0-34.0) L 12/13/22 05:35 MCHC 34.4 g/dL (33.0-35.0) 12/13/22 05:35 RDW 16.0 % (11.6-16.5) 12/13/22 05:35 Plt Count 131 X10^3/uL (150.0-450.0) L 12/13/22 05:35 MPV 8.0 fL (7.4-11.0) 12/13/22 05:35 Neut % (Auto) 72.5 % (42.0-75.0) 12/13/22 05:35 Lymph % (Auto) 13.9 % (21.0-51.0) L 12/13/22 05:35 [place] % (Auto) 9.3 % (0.0-13.0) 12/13/22 05:35 Eos % (Auto) 3.8 % (0.9-2.9) H 12/13/22 05:35 Baso % (Auto) 0.5 % (0.2-1.0) 12/13/22 05:35 Neut # (Auto) 3.5 x10^3/uL (2.2-4.8) 12/13/22 05:35 Lymph # (Auto) 0.7 X10^3/uL (1.3-2.9) L 12/13/22 05:35 [place] # (Auto) 0.4 x10^3/uL (0.3-0.8) 12/13/22 05:35 Eos # (Auto) 0.2 x10^3/uL (0.0-0.2) 12/13/22 05:35 Baso # (Auto) 0.0 X10^3/uL (0.0-0.1) 12/13/22 05:35 Absolute Nucleated RBC 0.0 /100WBC 12/13/22 05:35 PT 14.9 SECONDS (11.8-14.3) 12/11/22 04:50 INR Target Range - 12/11/22 04:50 INR 1.19 (0.8-1.3) 12/11/22 04:50 APTT 39.2 SECONDS (22.9-36.5) H 12/11/22 04:50 PTT Comment - 12/11/22 04:50 Sodium 140 mmol/L (136-145) 12/13/22 05:35 Corrected Sodium TNP 12/13/22 05:35 Potassium 3.9 mmol/L (3.5-5.1) 12/13/22 05:35 Chloride 108 mmol/L (98-107) H 12/13/22 05:35 Carbon Dioxide 27.6 mmol/L (21-32) 12/13/22 05:35 BUN 7 mg/dL (7-18) 12/13/22 05:35 Creatinine 0.62 mg/dL (0.55-1.02) 12/13/22 05:35 Est GFR (MDRD) Af Amer > 60 (>60) 12/13/22 05:35 Est GFR (MDRD) Non-Af > 60 (>60) 12/13/22 05:35 Glucose 98 mg/dL (65-99) 12/13/22 05:35 Calcium 8.0 mg/dL (8.5-10.1) L 12/13/22 05:35 Corrected Calcium 9.4 mg/dL (8.5-10.1) 12/13/22 05:35 Magnesium 2.3 mg/dL (2.0-2.9) 12/10/22 05:10 Total Bilirubin 0.50 mg/dL (0.2-1.0) 12/13/22 05:35 AST 12 Units/L (15-37) L 12/13/22 05:35 ALT 16 Units/L (12-78) 12/13/22 05:35 Alkaline Phosphatase 32 Units/L (46-116) L 12/13/22 05:35 Total Protein 5.2 g/dL (6.4-8.2) L 12/13/22 05:35 Albumin 2.3 g/dL (3.4-5.0) L 12/13/22 05:35 Globulin 2.9 g/dL (2.5-4.5) 12/13/22 05:35 Albumin/Globulin Ratio 0.8 Ratio (1.1-2.1) L 12/13/22 05:35 Specimen Type Clean catch urine 12/10/22 14:07 Urine Color Straw (YELLOW) 12/10/22 14:07 Urine Appearance Hazy (CLEAR) 12/10/22 14:07 Urine pH 7.0 (5.0 - 8.0) 12/10/22 14:07 Ur Specific [place] 1.015 (1.000-1.030) 12/10/22 14:07 Urine Protein 1+ (NEGATIVE) 12/10/22 14:07 Urine Glucose (UA) Negative (NEGATIVE) 12/10/22 14:07 Urine Ketones Negative (NEGATIVE) 12/10/22 14:07 Urine Blood Negative (NEGATIVE) 12/10/22 14:07 Urine Nitrite Negative (NEGATIVE) 12/10/22 14:07 Urine Bilirubin Negative (NEGATIVE) 12/10/22 14:07 Urine Urobilinogen Normal (NORMAL) 12/10/22 14:07 Ur Leukocyte Esterase 1+ (NEGATIVE) 12/10/22 14:07 Urine RBC None seen /HPF (0-3) 12/10/22 14:07 Urine WBC 3-5 /HPF (0-5) 12/10/22 14:07 Ur Squamous Epith Cells Moderate /HPF (NEGATIVE) 12/10/22 14:07 Amorphous Sediment 3+ /HPF (NEGATIVE) 12/10/22 14:07 Urine Bacteria 1+ /HPF (NEGATIVE) 12/10/22 14:07 Ur Culture Indicated? No/not indicated 12/10/22 14:07 Radiology Reviewed: Yes Plan (1) Dislocation of ankle, right, closed: Status: Acute Plan: Treatment per podiatry. (2) Bimalleolar fracture of right ankle: Status: Acute Plan: Treatment per podiatry. (3) Essential (primary) hypertension: Status: Acute Narrative Support Text: Blood pressure at noon today is elevated at 159/70. She has had some normal blood pressures and some of been elevated. Plan: Continue metoprolol tartrate 25 mg twice daily, amlodipine 2.5 mg p.o. nightly and continue to hold hydrochlorothiazide 50 mg daily. (4) Pain management: Status: Acute Plan: Continue as needed morphine sulfate along with hydrocodone. (5) GERD (gastroesophageal reflux disease): Status: Acute Plan: Continue omeprazole 40 mg daily. (6) Hypothyroidism: Status: Acute Plan: Continue levothyroxine 88 mcg daily. (7) Preoperative clearance: Status: Acute Plan: Awaiting cardiac consultation for cardiac clearance. (8) Depression: Status: Acute Plan: Continue citalopram 40 mg daily. (9) Restless leg syndrome: Status: Acute Plan: Start ropinirole 1 mg at bedtime. Recheck with patient in the morning see if it is helping. (10) Neuropathy: Status: Acute Plan: I will start the patient on gabapentin 300 mg today, then 3 mg twice daily tomorrow then 300 mg 3 times daily thereafter.
[2022-12-13] MEDS: NORCO 5/325 MG TAB PO PRN (13:59)
[2022-12-13] MEDS: TYLENOL 325 MG TAB PO PRN (18:50)
[2022-12-13] MEDS ORDERED: NORVASC TAB 2.5 MG ONE (20:19)
[2022-12-13] MEDS: CRESTOR TAB 10 MG PO SCH (20:50)
[2022-12-13] MEDS: DESYREL PO SCH (20:50)
[2022-12-13] MEDS: NORVASC TAB 2.5 MG PO SCH (20:51)
[2022-12-13] MEDS: ULTRAM PO PRN (20:51)
[2022-12-13] MEDS: REQUIP PO SCH (20:51)
[2022-12-14] MEDS: NS + KCL 20 MEQ/L 1,000 ML IV SCH ×3 (01:00→20:58)
[2022-12-14] MEDS: NEURONTIN CAP 300 MG PO SCH ×3 (05:26→20:59)
[2022-12-14 06:06] LABS: BASOPHILS % (AUTO) 0.6 % (0.2-1.0); EOSINOPHILS # (AUTO) 0.2 x10^3/uL (0.0-0.2); EOSINOPHILS % (AUTO) 3.2 % (0.9-2.9); HEMATOCRIT 27.2 % (36.0-47.0); HEMOGLOBIN 9.2 g/dL (12.0-16.0); LYMPHOCYTES # (AUTO) 0.6 X10^3/uL (1.3-2.9); LYMPHOCYTES % (AUTO) 10.9 % (21.0-51.0); MEAN CORPUSCULAR HEMOGLOBIN 25.9 pg (27.0-34.0); MEAN CORPUSCULAR VOLUME 76.3 fL (80.0-100.0); MEAN PLATELET VOLUME 8.2 fL (7.4-11.0); MONOCYTES # (AUTO) 0.5 x10^3/uL (0.3-0.8); MONOCYTES % (AUTO) 8.8 % (0.0-13.0); NEUTROPHILS # (AUTO) 4.5 x10^3/uL (2.2-4.8); NEUTROPHILS % (AUTO) 76.5 % (42.0-75.0); PLATELET COUNT 173 X10^3/uL (150.0-450.0); RED BLOOD COUNT 3.56 X10^6/uL (3.5-5.4); RED CELL DISTRIBUTION WIDTH 16.1 % (11.6-16.5); WHITE BLOOD COUNT 5.9 X10^3/uL (3.6-10.0)
[2022-12-14 06:25] LABS: ALANINE AMINOTRANSFERASE 14 Units/L (12-78); ALBUMIN 2.4 g/dL (3.4-5.0); ALKALINE PHOSPHATASE 35 Units/L (46-116); ASPARTATE AMINO TRANSFERASE 15 Units/L (15-37); BLOOD UREA NITROGEN 7 mg/dL (7-18); CALCIUM 8.3 mg/dL (8.5-10.1); CARBON DIOXIDE 25.8 mmol/L (21-32); CHLORIDE 108 mmol/L (98-107); COR CA(FOR HYPOALB) 9.6 mg/dL (8.5-10.1); CREATININE 0.66 mg/dL (0.55-1.02); GLUCOSE 105 mg/dL (65-99); SODIUM 140 mmol/L (136-145); TOTAL PROTEIN 5.5 g/dL (6.4-8.2); eGFR NON BLACK RACES > 60 (>60)
[2022-12-14] MEDS: SYNTHROID 88 mcg TAB PO SCH (08:38)
[2022-12-14] MEDS: CELEXA PO SCH (08:39)
[2022-12-14] MEDS: PriLOSEC PO SCH (08:39)
[2022-12-14] MEDS: LOPRESSOR TAB 25 MG PO SCH ×2 (08:39→20:55)
[2022-12-14] MEDS ORDERED: NS IRRIGATION* 500 ML IR ONE (08:52)
[2022-12-14] MEDS: MORPHINE SULFATE INJ 2 MG INJ IVP PRN (10:33)
--- NOTE | 2022-12-14 12:29 | PCM.PROG ---
Progress Note Progress Note for Day of Date of Exam: 12/14/22 Subjective Subjective: The patient is resting comfortably this morning. Pain seems to be fairly well controlled. She had a CT scan of the right lower extremity 3 days ago and showed a lateral malleolar fracture and a distal fibula fracture. It also showed a significant amount of soft tissue swelling. She has been cleared today by cardiology so that Dr. Elena can proceed with surgical fixation of her tib-fib fracture. He does recommend Lovenox prior to surgery because of history of DVT and after surgery as well. Past Medical Family Social History Allergies: Allergies Penicillins Allergy (Verified 12/09/22 21:54) Review of Systems ROS: No change since H&P Vital Signs and I&O's Vital Signs: Temperature 99.0 F Pulse Rate [Apical] 74 Pulse Rate 71 Respiratory Rate 20 Blood Pressure [Right Arm] 171/77 Blood Pressure [Left Arm] 174/78 Blood Pressure 178/79 O2 Sat by Pulse Oximetry 92 Intake and Output: Intake & Output 12/12/22 12/13/22 12/14/22 12/15/22 11:59 11:59 11:59 11:59 Intake Total 4915 / 4915 1420 / 1420 5604 / 5604 Balance 4915 / 4915 1420 / 1420 5604 / 5604 Physical Exam Oriented: Normal, Time and Person Eyes: Normal Nose: Normal Respiratory: Normal Cardiovascular: Normal Auscultation: Bowel Sounds: Normal Tenderness: Normal Skin: Normal Musculoskeletal: Right and Ankle (Pain) Psychiatric: Normal Mood Description: Calm Affect: Normal; negative Anxious, Depressed, Flat or Quiet Speech Pattern: Clear and Appropriate Laboratory and Diagnostics Result Diagrams: 12/14/22 05:20 12/14/22 05:20 Labs: Laboratory WBC 5.9 X10^3/uL (3.6-10.0) 12/14/22 05:20 RBC 3.56 X10^6/uL (3.5-5.4) 12/14/22 05:20 Hgb 9.2 g/dL (12.0-16.0) L 12/14/22 05:20 Hct 27.2 % (36.0-47.0) L 12/14/22 05:20 MCV 76.3 fL (80.0-100.0) L 12/14/22 05:20 MCH 25.9 pg (27.0-34.0) L 12/14/22 05:20 MCHC 34.0 g/dL (33.0-35.0) 12/14/22 05:20 RDW 16.1 % (11.6-16.5) 12/14/22 05:20 Plt Count 173 X10^3/uL (150.0-450.0) 12/14/22 05:20 MPV 8.2 fL (7.4-11.0) 12/14/22 05:20 Neut % (Auto) 76.5 % (42.0-75.0) H 12/14/22 05:20 Lymph % (Auto) 10.9 % (21.0-51.0) L 12/14/22 05:20 [place] % (Auto) 8.8 % (0.0-13.0) 12/14/22 05:20 Eos % (Auto) 3.2 % (0.9-2.9) H 12/14/22 05:20 Baso % (Auto) 0.6 % (0.2-1.0) 12/14/22 05:20 Neut # (Auto) 4.5 x10^3/uL (2.2-4.8) 12/14/22 05:20 Lymph # (Auto) 0.6 X10^3/uL (1.3-2.9) L 12/14/22 05:20 [place] # (Auto) 0.5 x10^3/uL (0.3-0.8) 12/14/22 05:20 Eos # (Auto) 0.2 x10^3/uL (0.0-0.2) 12/14/22 05:20 Baso # (Auto) 0.0 X10^3/uL (0.0-0.1) 12/14/22 05:20 Absolute Nucleated RBC 0.0 /100WBC 12/14/22 05:20 PT 14.9 SECONDS (11.8-14.3) 12/11/22 04:50 INR Target Range - 12/11/22 04:50 INR 1.19 (0.8-1.3) 12/11/22 04:50 APTT 39.2 SECONDS (22.9-36.5) H 12/11/22 04:50 PTT Comment - 12/11/22 04:50 Sodium 140 mmol/L (136-145) 12/14/22 05:20 Corrected Sodium TNP 12/14/22 05:20 Potassium 4.0 mmol/L (3.5-5.1) 12/14/22 05:20 Chloride 108 mmol/L (98-107) H 12/14/22 05:20 Carbon Dioxide 25.8 mmol/L (21-32) 12/14/22 05:20 BUN 7 mg/dL (7-18) 12/14/22 05:20 Creatinine 0.66 mg/dL (0.55-1.02) 12/14/22 05:20 Est GFR (MDRD) Af Amer > 60 (>60) 12/14/22 05:20 Est GFR (MDRD) Non-Af > 60 (>60) 12/14/22 05:20 Glucose 105 mg/dL (65-99) H 12/14/22 05:20 Calcium 8.3 mg/dL (8.5-10.1) L 12/14/22 05:20 Corrected Calcium 9.6 mg/dL (8.5-10.1) 12/14/22 05:20 Magnesium 2.3 mg/dL (2.0-2.9) 12/10/22 05:10 Total Bilirubin 0.50 mg/dL (0.2-1.0) 12/14/22 05:20 AST 15 Units/L (15-37) 12/14/22 05:20 ALT 14 Units/L (12-78) 12/14/22 05:20 Alkaline Phosphatase 35 Units/L (46-116) L 12/14/22 05:20 Total Protein 5.5 g/dL (6.4-8.2) L 12/14/22 05:20 Albumin 2.4 g/dL (3.4-5.0) L 12/14/22 05:20 Globulin 3.1 g/dL (2.5-4.5) 12/14/22 05:20 Albumin/Globulin Ratio 0.8 Ratio (1.1-2.1) L 12/14/22 05:20 Vitamin D 25-Hydroxy 17 ng/mL (30-80) L 12/11/22 04:50 Specimen Type Clean catch urine 12/10/22 14:07 Urine Color Straw (YELLOW) 12/10/22 14:07 Urine Appearance Hazy (CLEAR) 12/10/22 14:07 Urine pH 7.0 (5.0 - 8.0) 12/10/22 14:07 Ur Specific [place] 1.015 (1.000-1.030) 12/10/22 14:07 Urine Protein 1+ (NEGATIVE) 12/10/22 14:07 Urine Glucose (UA) Negative (NEGATIVE) 12/10/22 14:07 Urine Ketones Negative (NEGATIVE) 12/10/22 14:07 Urine Blood Negative (NEGATIVE) 12/10/22 14:07 Urine Nitrite Negative (NEGATIVE) 12/10/22 14:07 Urine Bilirubin Negative (NEGATIVE) 12/10/22 14:07 Urine Urobilinogen Normal (NORMAL) 12/10/22 14:07 Ur Leukocyte Esterase 1+ (NEGATIVE) 12/10/22 14:07 Urine RBC None seen /HPF (0-3) 12/10/22 14:07 Urine WBC 3-5 /HPF (0-5) 12/10/22 14:07 Ur Squamous Epith Cells Moderate /HPF (NEGATIVE) 12/10/22 14:07 Amorphous Sediment 3+ /HPF (NEGATIVE) 12/10/22 14:07 Urine Bacteria 1+ /HPF (NEGATIVE) 12/10/22 14:07 Ur Culture Indicated? No/not indicated 12/10/22 14:07 Plan (1) Dislocation of ankle, right, closed: Status: Acute Plan: Treatment per podiatry. (2) Bimalleolar fracture of right ankle: Status: Acute Plan: Treatment per podiatry. (3) Essential (primary) hypertension: Status: Acute Plan: Continue metoprolol tartrate 25 mg twice daily, amlodipine 2.5 mg p.o. nightly and continue to hold hydrochlorothiazide 50 mg daily. (4) Pain management: Status: Acute Plan: Continue as needed morphine sulfate along with hydrocodone. (5) GERD (gastroesophageal reflux disease): Status: Acute Plan: Continue omeprazole 40 mg daily. (6) Hypothyroidism: Status: Acute Plan: Continue levothyroxine 88 mcg daily. (7) Preoperative clearance: Status: Acute Plan: Patient is cleared by cardiology today for surgical fixation of her tib-fib fracture. I did recommend Lovenox before and after surgery given her history of DVT. Patient was on Eliquis which she can resume after surgery. (8) Depression: Status: Acute Plan: Continue citalopram 40 mg daily. (9) Restless leg syndrome: Status: Acute Plan: Start ropinirole 1 mg at bedtime. Recheck with patient in the morning see if it is helping. (10) Neuropathy: Status: Acute Plan: I will start the patient on gabapentin 300 mg today, then 3 mg twice daily tomorrow then 300 mg 3 times daily thereafter.
[2022-12-14] MEDS ORDERED: DIPRIVAN VIAL 0 ML ONE (15:00)
[2022-12-14] MEDS ORDERED: ZEMURON 100 MG VIAL ONE (15:00)
[2022-12-14] MEDS ORDERED: BRIDION ONE (15:00)
[2022-12-14] MEDS ORDERED: PEPCID 20 MG VIAL ONE (15:00)
[2022-12-14] MEDS ORDERED: ZOFRAN INJ 4 MG VIAL ONE (15:00)
[2022-12-14] MEDS ORDERED: FENTANYL VIAL INJ 100 mcg ONE (15:02)
[2022-12-14] MEDS ORDERED: VERSED ONE (15:02)
[2022-12-14] MEDS ORDERED: NS 100 ML IV 100 ML ONE (16:15)
[2022-12-14] MEDS ORDERED: LR 1,000 ML IV 1,000 ML IV ONE (16:15)
[2022-12-14] MEDS ORDERED: ANCEF VIAL 1 GRAM ONE (16:17)
--- NOTE | 2022-12-14 17:07 | RAD ---
EXAM: CHEST X-RAYHISTORY: New onset wheezing. Preoperative evaluation for right leg surgery.TECHNIQUE: AP CXR dated December 14, 2022 at 4:19 PM.COMPARISON: CXR dated December 10, 2022.FINDINGS:Note: Exam degraded by patient rotation.There is aortic atherosclerosis. There is evidence for borderline cardiomegaly. The peripheral pulmonary vascularity and interstitial markings are mildly prominent, in keeping with minimal CHF or volume overload in the appropriate clinical setting; DDx includes (but is not limited to) mild bronchitis and interstitial pneumonia in the appropriate clinical setting.There is no gross focal lung consolidation, pleural effusion, or pneumothorax seen. The visualized bony structures are within normal limits.IMPRESSION:1. Findings in keeping with minimal CHF or volume overload in the appropriate clinical setting; DDX includes (but is not limited to) mild bronchitis and interstitial pneumonia in the appropriate clinical setting; cannot rule out chronic subpleural interstitial fibrosis.2. Recommend clinical correlation and appropriate follow-up CXR evaluation to ensure interval clearance as clinically warranted.3. Consider follow-up noncontrast chest CT for further characterization as clinically warranted.Electronically signed by: Randi Leos (December 14, 2022 17:06:26)
[2022-12-14] MEDS ORDERED: XYLOCAINE 2 % (PLAIN) ONE (17:09)
[2022-12-14] MEDS ORDERED: SUPRANE ONE ×2 (17:09→17:21)
[2022-12-14] MEDS ORDERED: AMIDATE INJ 40 MG VIAL ONE (17:11)
[2022-12-14] MEDS ORDERED: EPHEDRINE SULFATE INJ ONE (17:29)
[2022-12-14] MEDS ORDERED: MARCAINE 0.25% INJ ONE (17:38)
[2022-12-14] MEDS ORDERED: NORVASC TAB 2.5 MG ONE (19:15)
[2022-12-14] MEDS ORDERED: DILAUDID INJ ONE (19:16)
[2022-12-14] MEDS ORDERED: MORPHINE SULFATE INJ 4 MG IVP PRN (19:34)
[2022-12-14] MEDS ORDERED: ZOFRAN INJ 4 MG VIAL IVP PRN (19:39)
[2022-12-14] MEDS ORDERED: BARHEMSYS INJ IVP PRN (19:39)
[2022-12-14] MEDS ORDERED: DILAUDID INJ IVP PRN (19:39)
[2022-12-14] MEDS ORDERED: BENADRYL INJ 50 MG VIAL IVP PRN (19:39)
[2022-12-14] MEDS: REQUIP PO SCH (20:54)
[2022-12-14] MEDS: NORVASC TAB 2.5 MG PO SCH (20:54)
[2022-12-14] MEDS: CRESTOR TAB 10 MG PO SCH (20:54)
[2022-12-14] MEDS: DESYREL PO SCH (20:54)
[2022-12-14] MEDS: PERCOCET TAB 5/325 MG PO PRN (20:55)
[2022-12-14] MEDS: COLACE CAP 100 MG PO SCH (20:58)
[2022-12-15] MEDS: NS + KCL 20 MEQ/L 1,000 ML IV SCH ×4 (01:03→17:46)
[2022-12-15] MEDS: TYLENOL 325 MG TAB PO PRN (01:37)
[2022-12-15] MEDS: NEURONTIN CAP 300 MG PO SCH ×3 (05:09→21:39)
[2022-12-15] MEDS: PERCOCET TAB 5/325 MG PO PRN ×2 (05:10→21:40)
[2022-12-15 06:39] LABS: BLOOD UREA NITROGEN 12 mg/dL (7-18); CALCIUM 8.2 mg/dL (8.5-10.1); CARBON DIOXIDE 25.9 mmol/L (21-32); CHLORIDE 105 mmol/L (98-107); COR NA(FOR HYPERGLY) 140 mmol/L (136-145); CREATININE 0.77 mg/dL (0.55-1.02); GLUCOSE 126 mg/dL (65-99); SODIUM 139 mmol/L (136-145); eGFR NON BLACK RACES > 60 (>60)
[2022-12-15] MEDS: MILK OF MAGNESIA PO SCH (08:36)
[2022-12-15] MEDS: SYNTHROID 88 mcg TAB PO SCH (08:37)
[2022-12-15] MEDS: LOVENOX INJ 40 MG SYR SC SCH (08:37)
[2022-12-15] MEDS: PriLOSEC PO SCH (08:37)
[2022-12-15] MEDS: CELEXA PO SCH (08:37)
[2022-12-15] MEDS: LOPRESSOR TAB 25 MG PO SCH ×2 (08:45→21:39)
--- NOTE | 2022-12-15 08:54 | PCM.PROG ---
Progress Note Progress Note for Day of Date of Exam: 12/15/22 Subjective Subjective: The patient is sitting up in the bed this morning. She appears a little bit groggy still. She did have her surgical fixation of her tib-fib fracture yesterday. Chest x-ray was done [place] yesterday and it showed minimal CHF or fluid overload. I will order a BNP this morning and repeat chest x-ray today see if there is any change. CMP is within normal limits this morning. Patient is on Lovenox for DVT prophylaxis. Past Medical Family Social History Allergies: Allergies Penicillins Allergy (Verified 12/09/22 21:54) Review of Systems ROS: No change since H&P Vital Signs and I&O's Vital Signs: Temperature 101.5 F Pulse Rate [Apical] 80 Pulse Rate 79 Respiratory Rate 18 Blood Pressure [Right Arm] 106/59 Blood Pressure [Left Arm] 174/78 Blood Pressure 120/58 O2 Sat by Pulse Oximetry 92 Intake and Output: Intake & Output 12/12/22 12/13/22 12/14/22 12/15/22 11:59 11:59 11:59 11:59 Intake Total 4915 / 4915 1420 / 1420 5604 / 5604 6774 / 6774 Output Total 1500 / 1500 Balance 4915 / 4915 1420 / 1420 5604 / 5604 5274 / 5274 Physical Exam Oriented: Normal, Time and Person Eyes: Normal Nose: Normal Respiratory: Normal Cardiovascular: Normal Auscultation: Bowel Sounds: Normal Tenderness: Normal Skin: Normal Musculoskeletal: Right and Ankle (Pain) Psychiatric: Normal Mood Description: Calm Affect: Normal; negative Anxious, Depressed, Flat or Quiet Speech Pattern: Clear and Appropriate Laboratory and Diagnostics Result Diagrams: 12/14/22 05:20 12/15/22 05:19 Labs: Laboratory WBC 5.9 X10^3/uL (3.6-10.0) 12/14/22 05:20 RBC 3.56 X10^6/uL (3.5-5.4) 12/14/22 05:20 Hgb 9.2 g/dL (12.0-16.0) L 12/14/22 05:20 Hct 27.2 % (36.0-47.0) L 12/14/22 05:20 MCV 76.3 fL (80.0-100.0) L 12/14/22 05:20 MCH 25.9 pg (27.0-34.0) L 12/14/22 05:20 MCHC 34.0 g/dL (33.0-35.0) 12/14/22 05:20 RDW 16.1 % (11.6-16.5) 12/14/22 05:20 Plt Count 173 X10^3/uL (150.0-450.0) 12/14/22 05:20 MPV 8.2 fL (7.4-11.0) 12/14/22 05:20 Neut % (Auto) 76.5 % (42.0-75.0) H 12/14/22 05:20 Lymph % (Auto) 10.9 % (21.0-51.0) L 12/14/22 05:20 [place] % (Auto) 8.8 % (0.0-13.0) 12/14/22 05:20 Eos % (Auto) 3.2 % (0.9-2.9) H 12/14/22 05:20 Baso % (Auto) 0.6 % (0.2-1.0) 12/14/22 05:20 Neut # (Auto) 4.5 x10^3/uL (2.2-4.8) 12/14/22 05:20 Lymph # (Auto) 0.6 X10^3/uL (1.3-2.9) L 12/14/22 05:20 [place] # (Auto) 0.5 x10^3/uL (0.3-0.8) 12/14/22 05:20 Eos # (Auto) 0.2 x10^3/uL (0.0-0.2) 12/14/22 05:20 Baso # (Auto) 0.0 X10^3/uL (0.0-0.1) 12/14/22 05:20 Absolute Nucleated RBC 0.0 /100WBC 12/14/22 05:20 PT 14.9 SECONDS (11.8-14.3) 12/11/22 04:50 INR Target Range - 12/11/22 04:50 INR 1.19 (0.8-1.3) 12/11/22 04:50 APTT 39.2 SECONDS (22.9-36.5) H 12/11/22 04:50 PTT Comment - 12/11/22 04:50 Sodium 139 mmol/L (136-145) 12/15/22 05:19 Corrected Sodium 140 mmol/L (136-145) 12/15/22 05:19 Potassium 4.0 mmol/L (3.5-5.1) 12/15/22 05:19 Chloride 105 mmol/L (98-107) 12/15/22 05:19 Carbon Dioxide 25.9 mmol/L (21-32) 12/15/22 05:19 BUN 12 mg/dL (7-18) 12/15/22 05:19 Creatinine 0.77 mg/dL (0.55-1.02) 12/15/22 05:19 Est GFR (MDRD) Af Amer > 60 (>60) 12/15/22 05:19 Est GFR (MDRD) Non-Af > 60 (>60) 12/15/22 05:19 Glucose 126 mg/dL (65-99) H 12/15/22 05:19 Calcium 8.2 mg/dL (8.5-10.1) L 12/15/22 05:19 Corrected Calcium 9.6 mg/dL (8.5-10.1) 12/14/22 05:20 Magnesium 2.3 mg/dL (2.0-2.9) 12/10/22 05:10 Total Bilirubin 0.50 mg/dL (0.2-1.0) 12/14/22 05:20 AST 15 Units/L (15-37) 12/14/22 05:20 ALT 14 Units/L (12-78) 12/14/22 05:20 Alkaline Phosphatase 35 Units/L (46-116) L 12/14/22 05:20 Total Protein 5.5 g/dL (6.4-8.2) L 12/14/22 05:20 Albumin 2.4 g/dL (3.4-5.0) L 12/14/22 05:20 Globulin 3.1 g/dL (2.5-4.5) 12/14/22 05:20 Albumin/Globulin Ratio 0.8 Ratio (1.1-2.1) L 12/14/22 05:20 Vitamin D 25-Hydroxy 17 ng/mL (30-80) L 12/11/22 04:50 Specimen Type Clean catch urine 12/10/22 14:07 Urine Color Straw (YELLOW) 12/10/22 14:07 Urine Appearance Hazy (CLEAR) 12/10/22 14:07 Urine pH 7.0 (5.0 - 8.0) 12/10/22 14:07 Ur Specific [place] 1.015 (1.000-1.030) 12/10/22 14:07 Urine Protein 1+ (NEGATIVE) 12/10/22 14:07 Urine Glucose (UA) Negative (NEGATIVE) 12/10/22 14:07 Urine Ketones Negative (NEGATIVE) 12/10/22 14:07 Urine Blood Negative (NEGATIVE) 12/10/22 14:07 Urine Nitrite Negative (NEGATIVE) 12/10/22 14:07 Urine Bilirubin Negative (NEGATIVE) 12/10/22 14:07 Urine Urobilinogen Normal (NORMAL) 12/10/22 14:07 Ur Leukocyte Esterase 1+ (NEGATIVE) 12/10/22 14:07 Urine RBC None seen /HPF (0-3) 12/10/22 14:07 Urine WBC 3-5 /HPF (0-5) 12/10/22 14:07 Ur Squamous Epith Cells Moderate /HPF (NEGATIVE) 12/10/22 14:07 Amorphous Sediment 3+ /HPF (NEGATIVE) 12/10/22 14:07 Urine Bacteria 1+ /HPF (NEGATIVE) 12/10/22 14:07 Ur Culture Indicated? No/not indicated 12/10/22 14:07 Radiology Reviewed: Yes Plan (1) Fluid overload: Status: Acute Narrative Support Text: Chest x-ray from yesterday showed minimal CHF changes possible fluid overload. Plan: I will check a BMP this morning as well as a chest x-ray again. (2) Dislocation of ankle, right, closed: Status: Acute Plan: Treatment per podiatry. (3) Bimalleolar fracture of right ankle: Status: Acute Plan: Treatment per podiatry. (4) Essential (primary) hypertension: Status: Acute Plan: Continue metoprolol tartrate 25 mg twice daily, amlodipine 2.5 mg p.o. nightly and continue to hold hydrochlorothiazide 50 mg daily. (5) Pain management: Status: Acute Plan: Continue as needed morphine sulfate along with hydrocodone. (6) GERD (gastroesophageal reflux disease): Status: Acute Plan: Continue omeprazole 40 mg daily. (7) Hypothyroidism: Status: Acute Plan: Continue levothyroxine 88 mcg daily. (8) Preoperative clearance: Status: Acute Plan: Patient is cleared by cardiology today for surgical fixation of her tib-fib fracture. I did recommend Lovenox before and after surgery given her history of DVT. Patient was on Eliquis which she can resume after surgery. (9) Depression: Status: Acute Plan: Continue citalopram 40 mg daily. (10) Restless leg syndrome: Status: Acute Plan: Start ropinirole 1 mg at bedtime. Recheck with patient in the morning see if it is helping. (11) Neuropathy: Status: Acute Plan: I will start the patient on gabapentin 300 mg today, then 3 mg twice daily tomorrow then 300 mg 3 times daily thereafter.
[2022-12-15] MEDS ORDERED: NORVASC TAB 2.5 MG ONE (19:26)
[2022-12-15] MEDS: CRESTOR TAB 10 MG PO SCH (21:39)
[2022-12-15] MEDS: DESYREL PO SCH (21:39)
[2022-12-15] MEDS: REQUIP PO SCH (21:39)
[2022-12-15] MEDS: NORVASC TAB 2.5 MG PO SCH (21:39)
[2022-12-15] MEDS: COLACE CAP 100 MG PO SCH (21:39)
[2022-12-16] MEDS: NS + KCL 20 MEQ/L 1,000 ML IV SCH (04:11)
[2022-12-16] MEDS: PERCOCET TAB 5/325 MG PO PRN (04:12)
[2022-12-16] MEDS: NEURONTIN CAP 300 MG PO SCH ×3 (05:05→22:00)
[2022-12-16 05:50] LABS: BASOPHILS % (AUTO) 0.4 % (0.2-1.0); EOSINOPHILS # (AUTO) 0.2 x10^3/uL (0.0-0.2); EOSINOPHILS % (AUTO) 2.1 % (0.9-2.9); HEMATOCRIT 27.3 % (36.0-47.0); HEMOGLOBIN 9.4 g/dL (12.0-16.0); LYMPHOCYTES # (AUTO) 0.5 X10^3/uL (1.3-2.9); LYMPHOCYTES % (AUTO) 5.7 % (21.0-51.0); MEAN CORPUSCULAR HEMOGLOBIN 26.2 pg (27.0-34.0); MEAN CORPUSCULAR HGB CONC 34.5 g/dL (33.0-35.0); MEAN PLATELET VOLUME 7.8 fL (7.4-11.0); MONOCYTES # (AUTO) 0.6 x10^3/uL (0.3-0.8); MONOCYTES % (AUTO) 6.9 % (0.0-13.0); NEUTROPHILS # (AUTO) 7.7 x10^3/uL (2.2-4.8); NEUTROPHILS % (AUTO) 84.9 % (42.0-75.0); PLATELET COUNT 197 X10^3/uL (150.0-450.0); RED CELL DISTRIBUTION WIDTH 15.8 % (11.6-16.5)
[2022-12-16 06:13] LABS: ALANINE AMINOTRANSFERASE 21 Units/L (12-78); ALBUMIN 2.4 g/dL (3.4-5.0); ALKALINE PHOSPHATASE 47 Units/L (46-116); ASPARTATE AMINO TRANSFERASE 37 Units/L (15-37); BLOOD UREA NITROGEN 13 mg/dL (7-18); CALCIUM 8.2 mg/dL (8.5-10.1); CHLORIDE 102 mmol/L (98-107); COR CA(FOR HYPOALB) 9.5 mg/dL (8.5-10.1); CREATININE 0.79 mg/dL (0.55-1.02); GLUCOSE 110 mg/dL (65-99); SODIUM 137 mmol/L (136-145); eGFR NON BLACK RACES > 60 (>60)
[2022-12-16] MEDS: LOVENOX INJ 40 MG SYR SC SCH (08:57)
[2022-12-16] MEDS: MILK OF MAGNESIA PO SCH ×2 (08:57→20:38)
[2022-12-16] MEDS: PriLOSEC PO SCH (08:59)
[2022-12-16] MEDS: CELEXA PO SCH (08:59)
[2022-12-16] MEDS: SYNTHROID 88 mcg TAB PO SCH (09:00)
[2022-12-16] MEDS: D5 1/2 NS + KCL 20 MEQ/L 1,000 ML IV SCH (09:00)
[2022-12-16] MEDS: LOPRESSOR TAB 25 MG PO SCH ×2 (09:01→20:39)
[2022-12-16 10:36] LABS: BILIRUBIN,URINE 1+ (NEGATIVE); BLOOD/HEMOGLOBIN,URINE 4+ (NEGATIVE); GLUCOSE, URINE NEGATIVE (NEGATIVE); KETONES,URINE NEGATIVE (NEGATIVE); LEUKOCYTE ESTERASE ,URINE 2+ (NEGATIVE); NITRITES,URINE NEGATIVE (NEGATIVE); PROTEIN,URINE 2+ (NEGATIVE); UROBILINOGEN,URINE 3+ (NORMAL)
[2022-12-16 10:46] LABS: APPEARANCE,URINE HAZY (CLEAR); COLOR,URINE DARK YELLOW (YELLOW)
[2022-12-16 10:47] LABS: BACTERIA,URINE TRACE /HPF (NEGATIVE); SQUAMOUS EPITHELIAL CELL,UR RARE /HPF (NEGATIVE)
[2022-12-16] MEDS: ROCEPHIN VIAL 1 GRAM 1 G in NS 100 ML IV 100 ML IV SCH (10:54)
--- NOTE | 2022-12-16 14:11 | RAD ---
HISTORYSOB, FEVER.brSTUDYCHEST, 1 JFGAMRBABSOAKD11/17/2023FINDINGSThe cardiomediastinal silhouette is stable. Chronic interstitial changes in the lungs. No acute airspace disease. No pneumothorax or effusion. The bony thorax appears intact.IMPRESSIONNo acute cardiopulmonary disease.Electronically signed by: TERRI SOLIZ (December 16, 2022 14:10:03)
--- NOTE | 2022-12-16 15:43 | PCM.PROG ---
Progress Note Progress Note for Day of Date of Exam: 12/16/22 Subjective Subjective: The patient is sitting up in the bed this morning. I see that she had fever with a Tmax of 100.5 yesterday. Currently she is not on any antibiotics. We have ordered a chest x-ray, urinalysis and blood cultures x2. Urinalysis did show 2+ leukocyte esterase another large number of bacteria at this time. However this could be the early UTI coming on. I have started Rocephin 1 g IV daily. Program Project Manager, Dr. Singh her LAD is coming tomorrow to check her leg from the recent surgery she had for a tib-fib fracture. I do see that her O2 sat has been trending down and is been in the low 90s so I am going to order a B nap today and tomorrow. If her Gita is elevated I will start her on IV Lasix. I am also going to check a PA and lateral chest x-ray on her tomorrow to see if she has any signs of fluid overload/congestive heart failure. The patient was supposed to go to [facility] today to start inpatient physical therapy following her tib-fib fracture and surgical fixation. However given that she had fever yesterday I do not feel comfortable sending her out with ongoing infection. We will plan on discharging her to [facility] Monday if she has no fever at that time. Past Medical Family Social History Allergies: Allergies Penicillins Allergy (Verified 12/09/22 21:54) Review of Systems ROS: No change since H&P Vital Signs and I&O's Vital Signs: Temperature 97.9 F Pulse Rate [Apical] 74 Pulse Rate 79 Respiratory Rate 20 Blood Pressure [Right Arm] 123/60 Blood Pressure [Left Arm] 174/78 Blood Pressure 120/58 O2 Sat by Pulse Oximetry 92 Intake and Output: Intake & Output 12/14/22 12/15/22 12/16/22 12/17/22 11:59 11:59 11:59 11:59 Intake Total 5604 / 5604 6774 / 6774 3012 / 3012 Output Total 1500 / 1500 Balance 5604 / 5604 5274 / 5274 3012 / 3012 Physical Exam Oriented: Normal, Time and Person Eyes: Normal Nose: Normal Respiratory: Normal Cardiovascular: Normal Auscultation: Bowel Sounds: Normal Tenderness: Normal Skin: Normal Musculoskeletal: Right and Ankle (Pain) Psychiatric: Normal Mood Description: Calm Affect: Normal; negative Anxious, Depressed, Flat or Quiet Speech Pattern: Clear and Appropriate Laboratory and Diagnostics Result Diagrams: 12/16/22 05:15 12/16/22 05:15 Labs: Laboratory WBC 9.0 X10^3/uL (3.6-10.0) 12/16/22 05:15 RBC 3.60 X10^6/uL (3.5-5.4) 12/16/22 05:15 Hgb 9.4 g/dL (12.0-16.0) L 12/16/22 05:15 Hct 27.3 % (36.0-47.0) L 12/16/22 05:15 MCV 76.0 fL (80.0-100.0) L 12/16/22 05:15 MCH 26.2 pg (27.0-34.0) L 12/16/22 05:15 MCHC 34.5 g/dL (33.0-35.0) 12/16/22 05:15 RDW 15.8 % (11.6-16.5) 12/16/22 05:15 Plt Count 197 X10^3/uL (150.0-450.0) 12/16/22 05:15 MPV 7.8 fL (7.4-11.0) 12/16/22 05:15 Neut % (Auto) 84.9 % (42.0-75.0) H 12/16/22 05:15 Lymph % (Auto) 5.7 % (21.0-51.0) L 12/16/22 05:15 [place] % (Auto) 6.9 % (0.0-13.0) 12/16/22 05:15 Eos % (Auto) 2.1 % (0.9-2.9) 12/16/22 05:15 Baso % (Auto) 0.4 % (0.2-1.0) 12/16/22 05:15 Neut # (Auto) 7.7 x10^3/uL (2.2-4.8) H 12/16/22 05:15 Lymph # (Auto) 0.5 X10^3/uL (1.3-2.9) L 12/16/22 05:15 [place] # (Auto) 0.6 x10^3/uL (0.3-0.8) 12/16/22 05:15 Eos # (Auto) 0.2 x10^3/uL (0.0-0.2) 12/16/22 05:15 Baso # (Auto) 0.0 X10^3/uL (0.0-0.1) 12/16/22 05:15 Absolute Nucleated RBC 0.0 /100WBC 12/16/22 05:15 PT 14.9 SECONDS (11.8-14.3) 12/11/22 04:50 INR Target Range - 12/11/22 04:50 INR 1.19 (0.8-1.3) 12/11/22 04:50 APTT 39.2 SECONDS (22.9-36.5) H 12/11/22 04:50 PTT Comment - 12/11/22 04:50 Sodium 137 mmol/L (136-145) 12/16/22 05:15 Corrected Sodium TNP 12/16/22 05:15 Potassium 4.0 mmol/L (3.5-5.1) 12/16/22 05:15 Chloride 102 mmol/L (98-107) 12/16/22 05:15 Carbon Dioxide 27.0 mmol/L (21-32) 12/16/22 05:15 BUN 13 mg/dL (7-18) 12/16/22 05:15 Creatinine 0.79 mg/dL (0.55-1.02) 12/16/22 05:15 Est GFR (MDRD) Af Amer > 60 (>60) 12/16/22 05:15 Est GFR (MDRD) Non-Af > 60 (>60) 12/16/22 05:15 Glucose 110 mg/dL (65-99) H 12/16/22 05:15 Calcium 8.2 mg/dL (8.5-10.1) L 12/16/22 05:15 Corrected Calcium 9.5 mg/dL (8.5-10.1) 12/16/22 05:15 Magnesium 2.3 mg/dL (2.0-2.9) 12/10/22 05:10 Total Bilirubin 1.00 mg/dL (0.2-1.0) 12/16/22 05:15 AST 37 Units/L (15-37) 12/16/22 05:15 ALT 21 Units/L (12-78) 12/16/22 05:15 Alkaline Phosphatase 47 Units/L (46-116) 12/16/22 05:15 B-Natriuretic Peptide 128 pg/mL (0-79) H 12/15/22 05:19 Total Protein 6.0 g/dL (6.4-8.2) L 12/16/22 05:15 Albumin 2.4 g/dL (3.4-5.0) L 12/16/22 05:15 Globulin 3.6 g/dL (2.5-4.5) 12/16/22 05:15 Albumin/Globulin Ratio 0.7 Ratio (1.1-2.1) L 12/16/22 05:15 Vitamin D 25-Hydroxy 17 ng/mL (30-80) L 12/11/22 04:50 Specimen Type Clean catch urine 12/16/22 10:17 Urine Color Dark yellow (YELLOW) 12/16/22 10:17 Urine Appearance Hazy (CLEAR) 12/16/22 10:17 Urine pH 6.0 (5.0 - 8.0) 12/16/22 10:17 Ur Specific [place] 1.020 (1.000-1.030) 12/16/22 10:17 Urine Protein 2+ (NEGATIVE) 12/16/22 10:17 Urine Glucose (UA) Negative (NEGATIVE) 12/16/22 10:17 Urine Ketones Negative (NEGATIVE) 12/16/22 10:17 Urine Blood 4+ (NEGATIVE) 12/16/22 10:17 Urine Nitrite Negative (NEGATIVE) 12/16/22 10:17 Urine Bilirubin 1+ (NEGATIVE) 12/16/22 10:17 Urine Urobilinogen 3+ (NORMAL) 12/16/22 10:17 Ur Leukocyte Esterase 2+ (NEGATIVE) 12/16/22 10:17 Urine RBC 10-20 /HPF (0-3) A 12/16/22 10:17 Urine WBC 3-5 /HPF (0-5) 12/16/22 10:17 Ur Squamous Epith Cells Rare /HPF (NEGATIVE) 12/16/22 10:17 Amorphous Sediment 2+ /HPF (NEGATIVE) 12/16/22 10:17 Urine Bacteria Trace /HPF (NEGATIVE) 12/16/22 10:17 Urine Mucus Numerous /HPF (NEGATIVE) 12/16/22 10:17 Ur Culture Indicated? No/not indicated 12/16/22 10:17 Radiology Reviewed: Yes Plan (1) Fluid overload: Status: Acute Plan: I will check a today, tomorrow and check a PA and lateral chest x- ray on tomorrow morning. We will diurese her with IV Lasix if needed. (2) Dislocation of ankle, right, closed: Status: Acute Plan: Treatment per podiatry. (3) Bimalleolar fracture of right ankle: Status: Acute Plan: [facility]. (4) Essential (primary) hypertension: Status: Acute Plan: Continue metoprolol tartrate 25 mg twice daily, amlodipine 2.5 mg p.o. nightly and continue to hold hydrochlorothiazide 50 mg daily. (5) Pain management: Status: Acute Plan: Continue as needed morphine sulfate along with hydrocodone. (6) GERD (gastroesophageal reflux disease): Status: Acute Plan: Continue omeprazole 40 mg daily. (7) Hypothyroidism: Status: Acute Plan: Continue levothyroxine 88 mcg daily. (8) Preoperative clearance: Status: Acute Plan: Patient is cleared by cardiology today for surgical fixation of her tib-fib fracture. I did recommend Lovenox before and after surgery given her history of DVT. Patient was on Eliquis which she can resume after surgery. (9) Depression: Status: Acute Plan: Continue citalopram 40 mg daily. (10) Restless leg syndrome: Status: Acute Plan: Start ropinirole 1 mg at bedtime. Recheck with patient in the morning see if it is helping. (11) Neuropathy: Status: Acute Plan: I will start the patient on gabapentin 300 mg today, then 3 mg twice daily tomorrow then 300 mg 3 times daily thereafter. (12) Fever: Status: Acute Plan: We have ordered blood cultures x2, portable chest x-ray which was normal and urinalysis which shows what looks to be like a early developing UTI. (13) UTI (urinary tract infection): Status: Acute Plan: Follow-up urine culture and sensitivities and the patient has been started on IV Rocephin.
[2022-12-16] MEDS: ULTRAM PO PRN ×2 (16:27→20:40)
[2022-12-16] MEDS ORDERED: NORVASC TAB 2.5 MG ONE (19:03)
[2022-12-16] MEDS: REQUIP PO SCH (20:38)
[2022-12-16] MEDS: DESYREL PO SCH (20:38)
[2022-12-16] MEDS: CRESTOR TAB 10 MG PO SCH (20:39)
[2022-12-16] MEDS: COLACE CAP 100 MG PO SCH (20:39)
[2022-12-16] MEDS: NORVASC TAB 2.5 MG PO SCH (20:39)
[2022-12-16] MEDS: TYLENOL 325 MG TAB PO PRN (20:40)
[2022-12-17] MEDS: NEURONTIN CAP 300 MG PO SCH ×3 (05:13→21:15)
[2022-12-17 06:12] LABS: BASOPHILS % (AUTO) 0 % (0.2-1.0); EOSINOPHILS # (AUTO) 0.3 x10^3/uL (0.0-0.2); EOSINOPHILS % (AUTO) 3.7 % (0.9-2.9); HEMOGLOBIN 8.3 g/dL (12.0-16.0); LYMPHOCYTES # (AUTO) 0.4 X10^3/uL (1.3-2.9); LYMPHOCYTES % (AUTO) 5.4 % (21.0-51.0); MAGNESIUM 1.9 mg/dL (2.0-2.9); MEAN CORPUSCULAR HEMOGLOBIN 25.4 pg (27.0-34.0); MEAN CORPUSCULAR HGB CONC 33.4 g/dL (33.0-35.0); MEAN PLATELET VOLUME 7.8 fL (7.4-11.0); MONOCYTES # (AUTO) 0.3 x10^3/uL (0.3-0.8); MONOCYTES % (AUTO) 4.6 % (0.0-13.0); NEUTROPHILS # (AUTO) 5.9 x10^3/uL (2.2-4.8); NEUTROPHILS % (AUTO) 86.3 % (42.0-75.0); PLATELET COUNT 199 X10^3/uL (150.0-450.0); RED BLOOD COUNT 3.28 X10^6/uL (3.5-5.4); RED CELL DISTRIBUTION WIDTH 15.8 % (11.6-16.5); WHITE BLOOD COUNT 6.9 X10^3/uL (3.6-10.0)
[2022-12-17] MEDS: MAGNESIUM SULFATE 1 GRAM/100 mL PREMIX 1 G/100 ML BAG IV PRN ×2 (06:27→15:00)
[2022-12-17] MEDS: MILK OF MAGNESIA PO SCH ×4 (06:34→20:02)
--- NOTE | 2022-12-17 08:08 | RAD ---
HISTORYFluid overloadSTUDYAP chestCOMPARISONMay 2022FINDINGSHeart size normal with no evidence for consolidation, pulmonary edema or pleural fluid. The hilar structures remain symmetric.IMPRESSIONNo interval change or acute/localized pulmonary or pleural lesion demonstrated.Electronically signed by: MARVA QUINTANA (December 17, 2022 08:07:03)
[2022-12-17] MEDS: D5 1/2 NS + KCL 20 MEQ/L 1,000 ML IV SCH (10:08)
[2022-12-17] MEDS: ROCEPHIN VIAL 1 GRAM 1 G in NS 100 ML IV 100 ML IV SCH (10:09)
[2022-12-17] MEDS: LOVENOX INJ 40 MG SYR SC SCH (10:09)
[2022-12-17] MEDS: SYNTHROID 88 mcg TAB PO SCH (10:10)
[2022-12-17] MEDS: PriLOSEC PO SCH (10:10)
[2022-12-17] MEDS: CELEXA PO SCH (10:10)
[2022-12-17] MEDS: LOPRESSOR TAB 25 MG PO SCH ×2 (10:10→20:01)
[2022-12-17] MEDS ORDERED: MIRALAX POWDER (1 DOSE 17 G) ONE (10:17)
[2022-12-17] MEDS: ULTRAM PO PRN ×2 (10:18→20:02)
[2022-12-17] MEDS: MIRALAX POWDER (1 DOSE 17 G) PO SCH ×2 (10:30→20:03)
[2022-12-17] MEDS ORDERED: NORVASC TAB 2.5 MG ONE (19:47)
[2022-12-17] MEDS: CRESTOR TAB 10 MG PO SCH (20:00)
[2022-12-17] MEDS: COLACE CAP 100 MG PO SCH (20:01)
[2022-12-17] MEDS: DESYREL PO SCH (20:01)
[2022-12-17] MEDS: NORVASC TAB 2.5 MG PO SCH (20:02)
[2022-12-17] MEDS: REQUIP PO SCH (21:14)
[2022-12-18 05:17] LABS: BASOPHILS % (AUTO) 0.5 % (0.2-1.0); EOSINOPHILS # (AUTO) 0.3 x10^3/uL (0.0-0.2); EOSINOPHILS % (AUTO) 4.4 % (0.9-2.9); HEMATOCRIT 26.4 % (36.0-47.0); HEMOGLOBIN 9.1 g/dL (12.0-16.0); LYMPHOCYTES # (AUTO) 0.6 X10^3/uL (1.3-2.9); LYMPHOCYTES % (AUTO) 9.4 % (21.0-51.0); MEAN CORPUSCULAR HGB CONC 34.3 g/dL (33.0-35.0); MEAN CORPUSCULAR VOLUME 75.7 fL (80.0-100.0); MEAN PLATELET VOLUME 7.7 fL (7.4-11.0); MONOCYTES # (AUTO) 0.5 x10^3/uL (0.3-0.8); MONOCYTES % (AUTO) 8.1 % (0.0-13.0); NEUTROPHILS # (AUTO) 4.8 x10^3/uL (2.2-4.8); NEUTROPHILS % (AUTO) 77.6 % (42.0-75.0); PLATELET COUNT 266 X10^3/uL (150.0-450.0); RED BLOOD COUNT 3.49 X10^6/uL (3.5-5.4); RED CELL DISTRIBUTION WIDTH 15.9 % (11.6-16.5); WHITE BLOOD COUNT 6.2 X10^3/uL (3.6-10.0)
[2022-12-18 05:30] LABS: ALANINE AMINOTRANSFERASE 25 Units/L (12-78); ALBUMIN 2.4 g/dL (3.4-5.0); ALKALINE PHOSPHATASE 59 Units/L (46-116); ASPARTATE AMINO TRANSFERASE 29 Units/L (15-37); BLOOD UREA NITROGEN 7 mg/dL (7-18); CALCIUM 8.4 mg/dL (8.5-10.1); CARBON DIOXIDE 26.7 mmol/L (21-32); CHLORIDE 103 mmol/L (98-107); COR CA(FOR HYPOALB) 9.7 mg/dL (8.5-10.1); GLUCOSE 109 mg/dL (65-99); SODIUM 136 mmol/L (136-145); TOTAL PROTEIN 5.9 g/dL (6.4-8.2); eGFR NON BLACK RACES > 60 (>60)
[2022-12-18] MEDS: NEURONTIN CAP 300 MG PO SCH ×3 (06:00→22:10)
[2022-12-18] MEDS: PriLOSEC PO SCH (08:13)
[2022-12-18] MEDS: ULTRAM PO PRN ×3 (08:13→20:54)
[2022-12-18] MEDS: MILK OF MAGNESIA PO SCH ×2 (08:16→21:57)
[2022-12-18] MEDS: LOVENOX INJ 40 MG SYR SC SCH (08:16)
[2022-12-18] MEDS: LOPRESSOR TAB 25 MG PO SCH ×2 (08:16→20:54)
[2022-12-18] MEDS: ROCEPHIN VIAL 1 GRAM 1 G in NS 100 ML IV 100 ML IV SCH (08:17)
[2022-12-18] MEDS: SYNTHROID 88 mcg TAB PO SCH (08:21)
[2022-12-18] MEDS: CELEXA PO SCH (08:21)
[2022-12-18] MEDS: D5 1/2 NS + KCL 20 MEQ/L 1,000 ML IV SCH (08:23)
[2022-12-18] MEDS ORDERED: NORVASC TAB 2.5 MG ONE (20:29)
[2022-12-18] MEDS: COLACE CAP 100 MG PO SCH (20:52)
[2022-12-18] MEDS: CRESTOR TAB 10 MG PO SCH (20:52)
[2022-12-18] MEDS: REQUIP PO SCH (20:53)
[2022-12-18] MEDS: DESYREL PO SCH (20:54)
[2022-12-18] MEDS: NORVASC TAB 2.5 MG PO SCH (21:00)
[2022-12-18] MEDS: MIRALAX POWDER (1 DOSE 17 G) PO SCH (22:08)
[2022-12-19] MEDS: NEURONTIN CAP 300 MG PO SCH (05:34)
[2022-12-19 06:04] LABS: BASOPHILS # (AUTO) 0.1 X10^3/uL (0.0-0.1); BASOPHILS % (AUTO) 1.1 % (0.2-1.0); EOSINOPHILS # (AUTO) 0.3 x10^3/uL (0.0-0.2); EOSINOPHILS % (AUTO) 4.3 % (0.9-2.9); HEMATOCRIT 26.6 % (36.0-47.0); HEMOGLOBIN 9.1 g/dL (12.0-16.0); LYMPHOCYTES # (AUTO) 0.7 X10^3/uL (1.3-2.9); LYMPHOCYTES % (AUTO) 11.1 % (21.0-51.0); MEAN CORPUSCULAR HEMOGLOBIN 25.9 pg (27.0-34.0); MEAN CORPUSCULAR HGB CONC 34.3 g/dL (33.0-35.0); MEAN CORPUSCULAR VOLUME 75.4 fL (80.0-100.0); MEAN PLATELET VOLUME 7.7 fL (7.4-11.0); MONOCYTES # (AUTO) 0.5 x10^3/uL (0.3-0.8); NEUTROPHILS # (AUTO) 4.4 x10^3/uL (2.2-4.8); NEUTROPHILS % (AUTO) 74.5 % (42.0-75.0); PLATELET COUNT 293 X10^3/uL (150.0-450.0); RED BLOOD COUNT 3.53 X10^6/uL (3.5-5.4); RED CELL DISTRIBUTION WIDTH 15.3 % (11.6-16.5); WHITE BLOOD COUNT 5.9 X10^3/uL (3.6-10.0)
[2022-12-19 06:13] LABS: ALANINE AMINOTRANSFERASE 25 Units/L (12-78); ALBUMIN 2.5 g/dL (3.4-5.0); ALKALINE PHOSPHATASE 60 Units/L (46-116); ASPARTATE AMINO TRANSFERASE 25 Units/L (15-37); BLOOD UREA NITROGEN 5 mg/dL (7-18); CALCIUM 8.6 mg/dL (8.5-10.1); CARBON DIOXIDE 27.9 mmol/L (21-32); CHLORIDE 103 mmol/L (98-107); COR CA(FOR HYPOALB) 9.8 mg/dL (8.5-10.1); CREATININE 0.68 mg/dL (0.55-1.02); GLUCOSE 94 mg/dL (65-99); POTASSIUM 4.2 mmol/L (3.5-5.1); SODIUM 137 mmol/L (136-145); TOTAL PROTEIN 6.1 g/dL (6.4-8.2); eGFR NON BLACK RACES > 60 (>60)
[2022-12-19 08:55] VITALS: BP 138/62; PULSE 68; TEMP 98.7; O2SAT 93
[2022-12-19] MEDS: MILK OF MAGNESIA PO SCH (08:56)
== END 2022-12-19 13:11 ==
LOC: MED/SURG 21:23 → ER 21:23 → MED/SURG 12-10 00:35
PROVIDERS: ADMIT Family Medicine; ATTEND Family Medicine
DX: K21.9 Gastro-esophageal reflux disease without esophagitis; W18.39XA Other fall on same level, initial encounter; K59.09 Other constipation; Z63.6 Dependent relative needing care at home; Z79.01 Long term (current) use of anticoagulants; M85.80 Other specified disorders of bone density and structure, unspecified site; G62.9 Polyneuropathy, unspecified; Z01.818 Encounter for other preprocedural examination; F32.A Depression, unspecified; E87.70 Fluid overload, unspecified; E83.32 Hereditary vitamin D-dependent rickets (type 1) (type 2); E03.8 Other specified hypothyroidism; N39.0 Urinary tract infection, site not specified; Z86.718 Personal history of other venous thrombosis and embolism; I10 Essential (primary) hypertension; R26.89 Other abnormalities of gait and mobility; R79.1 Abnormal coagulation profile; G25.81 Restless legs syndrome; S82.841A Displaced bimalleolar fracture of right lower leg, initial encounter for closed fracture; S93.04XA Dislocation of right ankle joint, initial encounter